=== PATIENT | female | born 1960 | race Caucasian/White ===

== ENCOUNTER 2023-08-16 08:11 | Outpatient (OUT) | payer BC, SELFPAY ==
[2023-08-16 09:41] LABS: Anion Gap 13.7; BUN Creatinine Ratio 29.9; Calcium 8.7 mg/dL (8.5-10.1); Chloride 105 mmol/L (98-107); Estimated GFR (African America >60 (>=60); Estimated GFR (Non-African Ame >60 (>=60); Glucose 124 mg/dL (74-106); Potassium 3.7 mmol/L (3.5-5.1); Sodium 143 mmol/L (136-145)
== END 2023-08-16 08:12 | disposition home or self-care (01) ==
LOC: LAB 08:18
PROVIDERS: PCP Nurse Practitioner; Visit Provider Personal Emergency Response Attendant
DX: Z01.818 Encounter for other preprocedural examination (principal)
CPT/HCPCS: 36415; 80048

== ENCOUNTER 2023-11-29 12:10 | Outpatient (OUT) | payer BC, SELFPAY ==
--- OUTSIDE RECORDS SUMMARY | 2023-11-29 12:28 | XMS_ITS | CCD ---
Author Name Unknown Address [facility] [address] [place] [address] Organization [facility] Care Team Providers Care Digital Account Executive Name Role Phone SACHIN DICKSON Primary Care Physician [phone] DR RAHEEL RAMOS Admitting Unavailable CED, DR PICKERING Attending Unavailable DICKSON ., DR SACHIN Schulz Primary Care Unavailable DR RAHEEL RAMOS Consulting Unavailable DICKSON ., DR SACHIN Schulz Admitting Unavailable DICKSON ., DR SACHIN Schulz Attending Unavailable DICKSON ., DR SACHIN cShulz Primary Care Unavailable KIKI GARCIA Admitting Unavailable KIKI GARCIA Attending Unavailable DICKSON ., DR SACHIN Schulz Primary Care Unavailable Ammy Farnsworth Consulting Unavailable KIKI GARCIA Consulting Unavailable CAROL ., SHAWNA Brown Admitting Unavailable CAROL ., SHAWNA Brown Attending Unavailable DICKSON ., DR SACHIN Schulz Primary Care Unavailable CAROL ., SHAWNA Brown Consulting Unavailable ESTRELLA FRASER Consulting Unavailable DICKSON ., DR SACHIN Schulz Admitting Unavailable DICKSON ., DR SACHIN Schulz Attending Unavailable DICKSON ., DR SACHIN Schulz Primary Care Unavailable DICKSON ., DR SACHIN Schulz Consulting Unavailable SACHIN DICKSON Primary Care Physician [phone] MD Sachin Dickson Primary Care Provider AMADOU Apodaca Attending Provider [phone] Elena Apodaca Attending Unavailable Elena Apodaca Admnarciso Unavailable Sachin Dickson Primary Care Unavailable Shawna Nelson Primary Care Physician [phone] Sachin Dickson MD Primary Care Provider [phone] KIKI GARCIA Attending Unavailable Omari VELASQUEZ Attending Unavailable KIKI GARCIA Attending Unavailable Omari VELASQUEZ Attending Unavailable Omari VELASQUEZ Referring Unavailable VELASQUEZ, Omari R Attending Unavailable Omari VELASQUEZ Admitting Unavailable Carol, 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 Shawna L Attending Unavailable Carol, 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 Shawna L Admitting Unavailable Carol, 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 Shawna L Attending Unavailable Carol, 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 Shawna L Attending Unavailable Carol, 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 Shawna L Attending Unavailable VELASQUEZOmari Attending Unavailable KELBLEY, PHYLLIS Attending Unavailable APODACA, ELENA J Referring Unavailable VILLASENOR, YOLY Manzano Attending Unavailable APODACA, ELENA J Referring Unavailable KELBLEY, PHYLLIS Attending Unavailable APODACA, ELENA J Referring Unavailable KELBLEY, PHYLLIS Attending Unavailable APODACA, ELENA J Referring Unavailable KELBLEY, PHYLLIS Attending Unavailable APODACA, ELENA J Referring Unavailable KELBLEY, PHYLLIS Attending Unavailable APODACA, ELENA J Referring Unavailable APODACA, ELENA J Attending Unavailable KELBLEY, PHYLLIS Attending Unavailable APODACA, ELENA J Referring Unavailable SEANCOLTEN Attending Unavailable APODACA, ELENA J Referring Unavailable KELBLEY, PHYLLIS Attending Unavailable APODACA, ELENA J Referring Unavailable APODACA, ELENA J Attending Unavailable JEREMIAH HAUSER Attending Unavailable APODACA, ELENA J Referring Unavailable APODACA, ELENA J Attending Unavailable VILLASENOR, YOLY J Attending Unavailable APODACA, ELENA J Referring Unavailable KELBLEY, PHYLLIS Attending Unavailable APODACA, ELENA J Referring Unavailable KELBLEY, PHYLLIS Attending Unavailable APODACA, ELENA J Referring Unavailable KELBLEY, PHYLLIS Attending Unavailable APODACA, ELENA J Referring Unavailable BRWEI HERNANDEZ Attending Unavailable APODACA, ELENA J Referring Unavailable KELBLEY, PHYLLIS Attending Unavailable APODACA, ELENA J Referring Unavailable APODACA, ELENA J Attending Unavailable KELBLEY, PHYLLIS Attending Unavailable APODACA, ELENA J Referring Unavailable KELBLEY, PHYLLIS Attending Unavailable APODACA, ELENA J Referring Unavailable KELBLEY, PHYLLIS Attending Unavailable APODACA, ELENA J Referring Unavailable Allergies Allergy Classification Reported Allergen(s) Allergy Type Date of Onset Reaction(s) Facility (14 sources) Morphine; Translations: [morphine] Drug Allergy 2 Seizure (finding), Other [facility] (2 sources) Meperidine Drug Allergy 5 [facility] Repository (2 sources) Meperidine; Translations: [meperidine] Drug Allergy 9 Seizure [facility] (10 sources) nickel; Translations: [nickel] Drug Allergy 0 Other [facility] (1 source) Promethazine; Translations: [promethazine] Drug Allergy [facility] Repository (1 source) Meperidine HCl-Promethazin e HCl; Translations: [Meperidine HCl-Promethazin e HCl] Propensity to adverse reactions (disorder) [facility] Repository Medications Current Medications Medication Drug Class(es) Dates Sig (Normalized) Sig (Original) 0.25 MG, 0.5 MG Dose 3 ML semaglutide 0.68 MG/ML Pen Injector [Ozempic] (4 sources) Start: 07-18-2023 Ozempic 2 mg/3 mL (0.25 mg or 0.5 mg dose) subcutaneous solution 0.25 mg, SubCutaneous, qWeek, # 3 mL, Refills(s) 3, Pharmacy: [facility]/pharmacy #[id number], 162, cm, 07/03/23 15:46:00 EDT, Height/Length Dosing, 100, kg, 07/03/23 15:46:00 EDT, Weight Dosing Start Date: 07/18/23 Status: Ordered Start: 02-27-2023 Ozempic 2 mg/3 mL (0.25 mg or 0.5 mg dose) subcutaneous solution 0.25 mg, SubCutaneous, qWeek, # 1 EA, Refills(s) 3, Pharmacy: [facility]/pharmacy #[id number], 162, cm, 12/20/22 9:07:00 EDT, Height/Length Dosing, 99.8, kg, 12/20/22 9:35:00 EDT, Weight Dosing Start Date: 02/27/23 Status: Ordered acetaminophen 500 mg oral tablet (1 source) Start: 10-04-2019 take 500 mg by mouth every six hours Acetaminophen Active 500 MG PO Q6H 0 October 04, 2019 1:00am acetaminophen 325 mg / oxyCODONE hydrochloride 5 mg oral tablet (1 source) Opioid Agonist Start: 10-04-2019 take 1 tablet by mouth every four to six hours as needed for pain Oxycodone-Acetamino phen (Percocet) 5-325 mg tablet Active 0 .ROUTE .COMPLEX 30 7 October 04, 2019 1 or 2 p.o. every 4-6 hours as needed pain aspirin 325 mg delayed release oral tablet (1 source) Platelet Aggregation Inhibitor, Nonsteroidal Anti-inflammatory Drug Start: 10-04-2019 take 325 mg by mouth once daily Aspirin Active 325 MG PO Daily 0 October 04, 2019 1:00am celecoxib 200 mg oral capsule (15 sources) Nonsteroidal Anti-inflammatory Drug Start: 09-15-2019 take 1 capsule by mouth twice daily as needed for pain celecoxib 200 mg Cap See Instructions, TAKE ONE BY MOUTH TWICE A DAY NEEDED FOR PAIN, # 60 cap(s), Refills(s) 11, Pharmacy: [id number], 162, cm, 08/20/23 8:36:00 EST, Height/Length Dosing, 99.2, kg, 08/20/23 8:36:00 EST, Weight Dosing Start Date: 08/20/23 Status: Ordered celecoxib (CeleB MONIE) 200 MG capsule every 12 (twelve) hours. 0 Active cephalexin 500 mg oral capsule (2 sources) Cephalosporin Antibacterial Start: 03-12-2023 take 1 capsule by mouth twice daily Keflex 500 mg Cap 500 mg = 1 cap(s), Oral, BID, Start the day prior to procedure, # 14 cap(s), Refills(s) 0, Pharmacy: [facility]/pharmacy #[id number], 162, cm, 12/20/22 9:07:00 EDT, Height/Length Dosing, 99.8, kg, 12/20/22 9:35:00 EDT, Weight Dosing Start Date: 03/12/23 Status: Ordered glipiZIDE 10 mg oral tablet (13 sources) Sulfonylurea Start: 10-09-2022 take 1 tablet by mouth twice daily glipiZIDE 10 mg Tab 10 mg = 1 tab(s), Oral, BID, # 90 tab(s), Refills(s) 1, Pharmacy: [facility]/pharmacy #[id number], 162, cm, 08/20/23 8:36:00 EST, Height/Length Dosing, 99.2, kg, 08/20/23 8:36:00 EST, Weight Dosing Start Date: 10/10/23 Status: Ordered hydroCHLOROthiazide 12.5 mg oral capsule (15 sources) Thiazide Diuretic Start: 07-03-2023 take 1 capsule by mouth once daily hydrochlorothiazide 12.5 mg Cap 12.5 mg = 1 cap(s), Oral, Daily, # 90 cap(s), Refills(s) 3, Pharmacy: [facility]/pharmacy #[id number], 162, cm, 07/03/23 15:46:00 EDT, Height/Length Dosing, 100, kg, 07/03/23 15:46:00 EDT, Weight Dosing Start Date: 07/03/23 Status: Ordered Start: 01-12-2023 take 1 capsule by mo uth once daily hydrochlorothiazide 12.5 mg Cap 12.5 mg = 1 cap(s), Oral, Daily, # 90 cap(s), Refills(s) 3, Pharmacy: [facility]/pharmacy #[id number], 162, cm, 12/20/22 9:07:00 EDT, Height/Length Dosing, 99.8, kg, 12/20/22 9:35:00 EDT, Weight Dosing Start Date: 01/12/23 Status: Ordered Start: 11-02-2021 End: 10-28-2022 take 1 capsule by mouth once daily hydrochlorothiazide 12.5 mg Cap 12.5 mg = 1 cap(s), Oral, Daily, X 90 day(s), # 90 cap(s), Refills(s) 3, [id number], cm, 10/04/21 8:11:00 EST, Height/Length Dosing, 100.9, kg, 08/01/21 15:33:00 EDT, Weight Dosing Start Date: 11/02/21 Stop Date: 10/28/22 Status: Ordered Start: 09-15-2019 take 12.5 mg by mout h once daily Hydrochlorothiazide Active 12.5 MG PO Daily 0 October 04, 2019 1:00am hydroCHLOROthiazide 12.5 mg / lisinopril 20 mg oral tablet (1 source) Thiazide Diuretic, Angiotensin Converting Enzyme Inhibitor Start: 09-15-2019 take 1 tablet by mouth once daily Lisinopril-Hydrochlorothiazide Active 1 TAB PO Daily September 15, 2019 1:00am lisinopril 20 mg oral tablet (12 sources) Angiotensin Converting Enzyme Inhibitor Start: 08-17-2020 take 1 tablet by mouth once daily lisinopril 20 mg Tab 20 mg = 1 tab(s), Oral, Daily, # 90 tab(s), Refills(s) 3, Pharmacy: [facility]/pharmacy #[id number], 162, cm, 12/20/22 9:07:00 EDT, Height/Length Dosing, 99.8, kg, 12/20/22 9:35:00 EDT, Weight Dosing Start Date: 01/23/23 Status: Ordered losartan potassium 25 mg oral tablet (1 source) Angiotensin 2 Receptor Pablo Start: 10-17-2023 take 1 tablet by mouth once daily losartan 25 mg Tab 25 mg = 1 tab(s), Oral, Daily, # 30 tab(s), Refills(s) 2, Pharmacy: [facility]/pharmacy #[id number], 162, cm, 10/17/23 10:57:00 EST, Height/Length Dosing, 99.8, kg, 10/17/23 10:57:00 EST, Weight Dosing Start Date: 10/17/23 Status: Ordered metFORMIN hydrochloride 500 mg oral tablet (13 sources) Biguanide Start: 10-09-2022 take 1 tablet by mouth twice daily metformin 500 mg Tab 500 mg = 1 tab(s), Oral, BID, # 180 tab(s), Refills(s) 3, Pharmacy: [facility]/pharmacy #[id number], 162, cm, 12/20/22 9:07:00 EDT, Height/Length Dosing, 99.8, kg, 12/20/22 9:35:00 EDT, Weight Dosing Start Date: 01/12/23 Status: Ordered methylPREDNISolone (8 sources) Corticosteroid Start: 10-12-2023 methylPREDNISolone (Medrol Dospak) 4 MG tablets Indications: S/P arthroscopy of left shoulder Follow schedule on package instructions 21 tablet 0 10/12/2023 Active metoprolol tartrate 25 mg oral tablet (14 sources) beta-Adrenergic Pablo Start: 07-11-2022 take 1 tablet by mouth every eight hours metoprolol tartrate (Lopressor) 25 MG tablet Take 25 mg by mouth every 8 (eight) hours. 0 07/11/2022 Active Start: 10-09-2019 take 1 mg by mouth once daily metoprolol 25 mg ER Tab mg tab(s), Oral, Daily, Refills(s) 0 Start Date: 10/09/19 Status: Ordered Start: 09-15-2019 take 25 mg by mouth twice luz y Metoprolol Tartrate Active 25 MG PO Twice daily September 15, 2019 1:00am omeprazole 40 mg delayed release oral capsule (12 sources) Proton Pump Inhibitor Start: 02-27-2023 End: 02-22-2024 omeprazole (PriLOSEC) [address] capsule Take 40 mg by mouth. 0 02/27/2023 02/22/2024 Active 0.25 mg, 0.5 mg dose 1.5 ml semaglutide 1.34 mg/ml pen injector (9 sources) Start: 11-27-2022 inject 0.25 mg by subcutaneous injection every week Ozempic, 0.25 or 0.5 MG/DOSE, 2 MG/1.5ML solution pen-injector INJECT 0.25MG SUBCUTANEOUSLY ONCE A WEEK 0 11/27/2022 Active Start: 10-09-2022 Ozempic 2 mg/1 .5 mL (0.25 mg or 0.5 mg dose) subcutaneous solution Refill(s) 0 Start Date: 10/09/22 Status: Ordered solifenacin succinate 10 mg oral tablet (14 sources) Cholinergic Muscarinic Antagonist Start: 09-02-2022 take 1 tablet by mouth once daily Vesicare 10 mg Tab 10 mg = 1 tab(s), Oral, Daily, # 90 tab(s), Refills(s) 3, Pharmacy: [facility]/pharmacy #[id number], 162, cm, 08/20/23 8:36:00 EST, Height/Length Dosing, 99.2, kg, 08/20/23 8:36:00 EST, Weight Dosing Start Date: 08/29/23 Status: Ordered 24 hr tolterodine tartrate 4 mg extended release oral capsule (1 source) Cholinergic Muscarinic Antagonist Start: 09-15-2019 take 1 capsule by mouth once daily Tolterodine (Detrol La) 4 mg Capsule,Extended Release 24hr Active 8 MG PO Daily September 15, 2019 1:00am Problems Problem Classification Problem Date Documented Date Episodic/Chronic Calculus of urinary tract (20 sources) History of calculus of kidney; Translations: [Personal history of urinary calculi] Onset: 09-18-2022 Episodic Diabetes mellitus with complications (4 sources) Type 2 diabetes mellitus with unspecified complications; Translations: [TYPE 2 DM W/UNS COMPLICATIONS] Onset: 06-09-2022 Chronic Diabetes mellitus without complication (2 sources) Type 2 diabetes mellitus without complications; Translations: [Type 2 diabetes mellitus] Onset: 09-19-2022 10-17-2023 Chronic Diabetes mellitus without complication (5 sources) Glycosuria 08-01-2021 Episodic Essential hypertension (6 sources) Hypertensive disorder; Translations: [Benign hypertension] 10-09-2019 Chronic Genitourinary symptoms and ill-defined conditions (17 sources) Urge incontinence; Translations: [Female stress incontinence] Onset: 10-09-2022 Chronic Genitourinary symptoms and ill-defined conditions (20 sources) Nocturia; Translations: [Nocturia] Onset: 10-09-2022 Episodic Osteoarthritis (6 sources) Arthritis; Translations: [Osteoarthritis of knee] 10-09-2019 Chronic Other connective tissue disease (1 source) History of total knee arthroplasty; Translations: [Presence of unspecified artificial knee joint] 10-04-2019 Chronic Other injuries and conditions due to external causes (4 sources) Unspecified injury of left shoulder and upper arm, initial encounter; Translations: [UNS INJ LT SHOULDER UP ARM INITIAL] Onset: 12-21-2022 Episodic Other lower respiratory disease (2 sources) Cough 08-20-2023 Episodic Other non-traumatic joint disorders (12 sources) Pain in left shoulder; Translations: [Pain in joint, shoulder region] Onset: 09-25-2023 09-25-2023 Episodic Other nutritional; endocrine; and metabolic disorders (4 sources) Body mass index 30+ - obesity 12-20-2022 Chronic Other nutritional; endocrine; and metabolic disorders (5 sources) Obesity; Translations: [Obesity, unspecified] 12-20-2022 Chronic Residual codes; unclassified (12 sources) History of arthroscopic procedure on shoulder; Translations: [Other specified postprocedural states] Onset: 09-25-2023 09-25-2023 Episodic Unclassified (1 source) Other specific joint derangements of left shoulder, not elsewhere classified; Translations: [Other specific joint derangements of left shoulder, not elsewhere classified] Onset: 04-26-2023 Unclassified (3 sources) Patient encounter status 10-17-2023 Results Test Name Value Interpretation Reference Range Facility Consultation Noteon 11-16-19 Consultation Note [id number] 0TIFF [facility] Consultation Noteon 10-26-19 Consultation Note [id number] TIFF Normal [facility] Reminderson 10-25-2023 Reminders - From: Shawna Roberts To: [facility] - Clinical; Sent: 10/18/2023 09:08:13 EST Show up: 10/18/2023 09:08:00 EST Subject: Ambulatory Reminder Due Date/Time: 10/19/2023 09:07:00 EST labs normal Results: Date Result Name Ind Value Ref Range 10/17/2023 11:29 WBC 10.3 E9/L (4.0 - 11.0) 10/17/2023 11:29 RBC 4.6 E12/L (4.3 - 5.9) 10/17/2023 11:29 HGB 14.2 gm/dL (12.0 - 16.0) 10/17/2023 11:29 Hct 44.0 % (34.0 - 46.0) 10/17/2023 11:29 MCV 93.8 fL (80.0 - 100.0) 10/17/2023 11:29 MCH 30.5 pg (27.0 - 34.0) 10/17/2023 11:29 MCHC 32.6 gm/dL (31.4 - 36.0) 10/17/2023 11:29 RDW ((H)) 14.7 % (10.9 - 14.2) 10/17/2023 11:29 Platelet 326.0 E9/L (150.0 - 500.0) 10/17/2023 11:29 MPV 7.9 fL (6.4 - 10.8) 10/17/2023 11:29 Neutro Auto 58.1 % (36.0 - 75.0) 10/17/2023 11:29 Lymph Auto 33.9 % (14.0 - 50.0) 10/17/2023 11:29 [place]in Auto 6.8 % (4.0 - 14.0) 10/17/2023 11:29 Eos Auto 0.8 % (0.0 - 8.0) 10/17/2023 11:29 Basophil Auto 0.4 % (0.0 - 2.0) 10/17/2023 11:29 Neutro Absolute 6.0 E9/L (2.0 - 7.5) 10/17/2023 11:29 Lymph Absolute 3.5 E9/L (1.0 - 4.0) 10/17/2023 11:29 [place] Absolute 0.7 E9/L (0.2 - 1.0) 10/17/2023 11:29 Eos Absolute 0.1 E9/L (0.0 - 0.5) 10/17/2023 11:29 Basophil Absolute 0.0 E9/L (0.0 - 0.2) 10/17/2023 11:29 Glucose Lvl 124 mg/dL (55 - 199) 10/17/2023 11:29 BUN 19 mg/dL (5 - 21) 10/17/2023 11:29 Creatinine 0.8 mg/dL (0.5 - 1.3) 10/17/2023 11:29 eGFR 83 mL/min/1.73 m2 (>=59 - ) 10/17/2023 11:29 BUN/Creat Ratio ((H)) 24 (10 - 20) 10/17/2023 11:29 Sodium Lvl 139 mmol/L (135 - 145) 10/17/2023 11:29 Potassium Lvl 3.8 mmol/L (3.5 - 5.3) 10/17/2023 11:29 Chloride 104 mmol/L (101 - 111) 10/17/2023 11:29 CO2 27 mmol/L (21 - 31) 10/17/2023 11:29 AGAP 12 mEq/L (6 - 16) 10/17/2023 11:29 Calcium Lvl 9.4 mg/dL (8.9 - 11.1) 10/17/2023 11:29 Alk Phos 96 Int._Unit/L (21 - 98) 10/17/2023 11:29 ALT 24 Int._Unit/L (6 - 46) 10/17/2023 11:29 AST 15 Int._Unit/L (5 - 43) 10/17/2023 11:29 Total Protein 6.9 gm/dL (6.0 - 7.8) 10/17/2023 11:29 Albumin Lvl 4.1 gm/dL (3.3 - 5.0) 10/17/2023 11:29 Globulin 2.8 gm/dL (1.4 - 4.0) 10/17/2023 11:29 A/G Ratio 1.5 (1.1 - 2.2) 10/17/2023 11:29 Bili Total 0.5 mg/dL (0.0 - 1.1) 10/17/2023 11:29 Chol 170 mg/dL (120 - 200) 10/17/2023 11:29 Trig 97 mg/dL ( - <=149) 10/17/2023 11:29 HDL 56 mg/dL 10/17/2023 11:29 LDL Direct 105 mg/dL ( - <=129) 10/17/2023 11:29 VLDL 19 mg/dL (7 - 40) 10/17/2023 11:29 TSH 1.84 mcIU/mL (0.34 - 5.60) From: Moni Suresh ([facility] - Clinical) To: Shawna Roberts; Sent: 10/18/2023 10:08:24 EST Show up: 10/18/2023 10:08:00 EST Subject: RE: Ambulatory Reminder pt notified, she stated she now has a yeast infection for the Antibiotic and would like to know if you could sent her something in. Pt Called to check on this , she is asking for a call back. Could we have Jessi take a look at this. Im thinking since it is under reminders she may not have seen the message. From: Bridgette Plummer LPN To: [facility] - Clinical; Sent: 10/19/2023 12:04:09 EST Show up: 10/19/2023 12:03:00 EST Subject: lab results- yeast infection From: Jossie Yoo ([facility] - Clinical) To: Shawna Roberts; Sent: 10/22/2023 11:26:57 EST Show up: 10/22/2023 11:26:00 EST Subject: RE: lab results- yeast infection From: Shawna Roberts To: [facility] - Clinical; Sent: 10/25/2023 12:40:20 EST Show up: 10/25/2023 12:40:00 EST Subject: RE: lab results- yeast infection diflucan sent to pharmacy noted Normal [facility] Ambulatory Visit Summaryon 0 10-17-2023 Ambulatory Visit Summary DEBI LIMA :1960 Visit Date:10/17/2023 Ambulatory Visit Instructions Your Diagnosis Wellness examination Type 2 diabetes mellitus Hypertension BMI 38.0-38.9,adult Non-smoker Screening for hyperlipidemia Screening for thyroid disorder Your Care Team Attending Physician - Shawna Roberts Primary Care Physician - Shawna Roberts This Is Your Medications List Misc Prescription (lancets) Misc Prescription (test strips) celecoxib (celecoxib 200 mg Cap) glipiZIDE (glipiZIDE 10 mg Tab) hydrochlorothiazide (hydrochlorothiazide 12.5 mg Cap) lisinopril (lisinopril 20 mg Tab) metformin (metformin 500 mg Tab) metoprolol (metoprolol 25 mg ER Tab) omeprazole (omeprazole 40 mg Cap-DR) semaglutide (Ozempic 2 mg/3 mL (0.25 mg or 0.5 mg dose) subcutaneous solution) solifenacin (Vesicare 10 mg Tab) Procedures Performed 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 Discharge Vitals Heart Rate (Peripheral) 76 Respiratory Rate 18 Blood Pressure 124/88 Height 162.0 cm Height 64 in Weight 99.8 kg Weight 219.56 lb BMI 38.03 Medications What How Much When Instructions Unchanged celecoxib (celecoxib 200 mg Cap) See instructions TAKE ONE BY MOUTH TWICE A DAY NEEDED FOR PAIN Unchanged glipiZIDE (glipiZIDE 10 mg Tab) 1 Tablets By Mouth 2 times a day Unchanged hydrochlorothiazide (hydrochlorothiazide 12.5 mg Cap) 1 Capsules By Mouth Every day Unchanged lisinopril (lisinopril 20 mg Tab) 1 Tablets By Mouth Every day Unchanged metformin (metformin 500 mg Tab) 1 Tablets By Mouth 2 times a day Unchanged metoprolol (metoprolol 25 mg ER Tab) By Mouth Every day Unchanged Misc Prescription (lancets) See instructions test glucose daily dx E11.9 Unchanged Misc Prescription (test strips) See instructions glucometer test strips to check blood sugars daily dx: glucosuria Unchanged omeprazole (omeprazole 40 mg Cap-DR) 1 Capsules By Mouth 2 times a day Duration: 90 Days Unchanged semaglutide (Ozempic 2 mg/ 3 mL (0.25 mg or 0.5 mg dose) subcutaneous solution) 0.25 Milligram Subcutaneous Every week Unchanged solifenacin (Vesicare 10 mg Tab) 1 Tablets By Mouth Every day Allergies morphine (Seizure) Problems Ongoing - Any problem that you are currently receiving treatment for. Arthritis BMI 38.0-38.9,adult Cough Glucosuria Hematuria History of kidney stones Hypertension Incomplete bladder emptying Kidney stone Mixed incontinence Nephrolithiasis Nocturia Obesity due to excess calories Screening for hyperlipidemia Screening for thyroid disorder Stress incontinence, female Type 2 diabetes mellitus Urge incontinence Urgency of urination Urinary frequency Wellness examination Patient Survey You may receive a survey via text or e-mail asking about your office visit. Please share your experience with us by completing your survey. We appreciate your feedback and thank you for choosing us for your care. Normal [facility] CBC w/ Auto Diffon 4 Basophil Absolute 0.0 E9/L Normal 0.0-0.2 [facility] Comment on above: Performed By: #### 2 [id number], [id number] #### [facility] [address] [place] [address] Basophils/100 WBC (Bld) 0.4 % Normal 0.0-2.0 [facility] Comment on above: Performed By: #### 2 [id number], [id number], [id number], [id number], [id number] #### [facility] [address] [place] [address] Eos Absolute 0.1 E9/L Normal 0.0-0.5 [facility] Comment on above: Performed By: #### 2 [id number], [id number], [id number], [id number] #### [facility] [address] [place] [address] Eosinophils/100 WBC (Bld) 0.8 % Normal 0.0-8.0 [facility] Comment on above: Performed By: #### 2 [id number], [id number], [id number] #### [facility] [address] [place] [id number] Erythrocyte distribution width (RBC) [Ratio] 14.7 % High 10.9-14.2 [facility] Comment on above: Performed By: #### 2 [id number], [id number], [id number] #### [facility] [address] [place] [id number] Hematocrit (Bld) [Volume fraction] 44.0 % Normal 34.0-46.0 [facility] Comment on above: Performed By: #### 2 [id number], [id number], [id number], [id number] #### [facility] [address] [place] [id number] Hemoglobin (Bld) [Mass/Vol] 14.2 g/dL Normal 12.0-16.0 [facility] Comment on above: Performed By: #### 2 [id number], [id number], [id number], [id number] #### [facility] [address] [place] [address] Lymph Absolute 3.5 E9/L Normal 1.0-4.0 [facility] Comment on above: Performed By: #### 2 [id number], [id number], [id number], [id number], [id number] #### [facility] [address] [place] [address] Lymphocytes/100 WBC (Bld) 33.9 % Normal 14.0-50.0 [facility] Comment on above: Performed By: #### 2 [id number], [id number], [id number], [id number], [id number] #### [facility] Laboratory [address] [place] [address] 76040 MCH (RBC) [Entitic mass] 30.5 pg Normal 27.0-34.0 [facility] Comment on above: Performed By: #### 2 774600, 0008088, 7263030, 82992866, 9010868 #### [facility] Laboratory [address] [place] [address] 75943 MCHC (RBC) [Mass/Vol] 32.6 g/dL Normal 31.4-36.0 [facility] Comment on above: Performed By: #### 2 048720, 6150926, 1027777, 35629679, 9105152 #### [facility] [address] [place] [address] 76085 MCV (RBC) [Entitic vol] 93.8 fL Normal 80.0-100.0 [facility] Comment on above: Performed By: #### 2 712164, 2130640, 0536784, 88120345, 8065409 #### [facility] Laboratory [address] [place] [address] 92928 [place] Absolute 0.7 E9/L Normal 0.2-1.0 [facility] Comment on above: Performed By: #### 2 223187, 2384758, 9690287, 45971073, 2634084 #### [facility] [address] [place] [address] 65686 Monocytes/100 WBC (Bld) 6.8 % Normal 4.0-14.0 [facility] Comment on above: Performed By: #### 2 234465, 3986925, 8421566, 32861880, 0607725 #### [facility] [address] [place] [address] 53701 Neutro Absolute 6.0 E9/L Normal 2.0-7.5 [facility] Comment on above: Performed By: #### 2 479921, 4911971, 1245124, 85779829, 7429934 #### [facility] [address] [place] [address] Neutro Auto 58.1 % Normal 36.0-75.0 [facility] Comment on above: Performed By: #### 2 697012, 0775786, 3328188, 65344440, 6968176 #### [facility] [address] [place] [address] Platelet 326.0 E9/L Normal 150.0-500.0 [facility] Comment on above: Performed By: #### 2 508289, 8846368, 1399733, 39879117, 9649711 #### [facility] [address] [place] [address] Platelet mean volume (Bld) [Entitic vol] 7.9 fL Normal 6.4-10.8 [facility] Comment on above: Performed By: #### 2 215390, 5731412, 1262630, 64997622, 9422249 #### [facility] [address] [place] [address] RBC 4.6 E12/L Normal 4.3-5.9 [facility] Comment on above: Performed By: #### 2 951275, 8685260, 9772292, 41379581, 8561273 #### [facility] [address] [place] [address] WBC 10.3 E9/L Normal 4.0-11.0 [facility] Comment on above: Performed By: #### 2 358064, 0181230, 5766007, 55467153, 6792971 #### [facility] [address] [place] [address] CHEMISTRYOrdered By: SYSTEM SYSTEM on 10-17-2023 Albumin [Mass/Vol] 4.1 g/dL Normal 3.3 - 5.0 gm/dL [facility] Albumin/Globulin [Mass ratio] 1.5 {ratio} Normal 1.1 - 2.2 [facility] Alk Phos 96 [iU]/d Normal 21 - 98 Int._Unit/L [facility] ALT 24 [iU]/d Normal 6 - 46 Int._Unit/L [facility] Anion gap [Moles/Vol] 12 mmol/L Normal 6 - 16 mEq/L R emisol Chem AST 15 [iU]/d Normal 5 - 43 Int._Unit/L [facility] Bili Total 0.5 mg/dL Normal 0.0 - 1.1 mg/dL [facility] Calcium [Mass/Vol] 9.4 mg/dL Normal 8.9 - 11. 1 mg/dL [facility] Chloride [Moles/Vol] 104 mmol/L Normal 101 - 1 11 mmol/L [facility] Cholesterol [Mass/Vol] 170 mg/dL Normal 120 - 200 mg/dL [facility] Cholesterol in HDL [Mass/Vol] 56 mg/dL Invalid Interpretation Code [facility] Comment on above: Result Comment: '>= 60 LOW RISK' '<= 40 HIGH RISK' Cholesterol in LDL [Mass/Vol] 105 mg/dL Normal <=129mg/dL [facility] Cholesterol in VLDL [Mass/Vol] 19 mg/dL Normal 7 - 40 mg/dL [facility] CO2 [Moles/Vol] 27 mmol/L Normal 21 - 31 mmol/L [facility] Creatinine [Mass/Vol] 0.8 mg/dL Normal 0.5 - 1.3 mg/dL [facility] eGFR 83 mL/min/1.73 m2 Normal >=59mL/min /1 .73 m2 [facility] Globulin (S) [Mass/Vol] 2.8 g/dL Normal 1.4 - 4.0 gm/dL [facility] Glucose [Mass/Vol] 124 mg/dL Normal 55 - 199 mg/dL [facility] Potassium [Moles/Vol] 3.8 mmol/L Normal 3.5 - 5.3 mmol/L [facility] Protein [Mass/Vol] 6.9 g/dL Normal 6.0 - 7.8 gm/dL [facility] Sodium [Moles/Vol] 139 mmol/L Normal 135 - 145 mmol/L [facility] Triglyceride [Mass/Vol] 97 mg/dL Normal <=149mg/dL [facility] TSH Qn 1.84 m[IU]/L Normal 0.34 - 5.60 mcIU/mL [facility] Urea nitrogen [Mass/Vol] 19 mg/dL Normal 5 - 21 mg/dL [facility] Urea nitrogen/Creatinine [Mass ratio] 24 mg/mg High 10 - 20 [facility] CMPon 10-17-2023 Albumin [Mass/Vol] 4.1 g/dL Normal 3.3-5.0 [facility] Comment on above: Performed By: #### 2 261220, 0702873, 9776451, 16876636, 7252400 #### [facility] [address] [place] [address] Albumin/Globulin [Mass ratio] 1.5 {ratio} Normal 1.1-2.2 [facility] Comment on above: Performed By: #### 2 236538, 2421687, 8108071, 99401647, 5974565 #### [facility] [address] [place] [address] Alk Phos 96 Int._Unit/L Normal 21-98 [facility] Comment on above: Performed By: #### 2 085482, 8083014, 9646366, 39357649, 5332026 #### [facility] [address] [place] [address] ALT 24 Int._Unit/L Normal 6-46 [facility] Comment on above: Performed By: #### 2 747184, 5072327, 6508229, 05483870, 0531481 #### [facility] [address] [place] [address] Anion gap [Moles/Vol] 12 mmol/L Normal 6-16 [facility] Comment on above: Performed By: #### 2 782065, 3604203, 2874912, 50832947, 7126284 #### [facility] [address] [place] [address] AST 15 Int._Unit/L Normal 5-43 [facility] Comment on above: Performed By: #### 2 279903, 7870545, 6733208, 33363961, 2907528 #### [facility] [address] [place] [address] Bili Total 0.5 mg/dL Normal 0.0-1.1 [facility] Comment on above: Performed By: #### 2 485955, 0274374, 7846376, 97251615, 4742645 #### [facility] [address] [place] [address] BUN/Creat Ratio 24 No Units High 10-20 [facility] Comment on above: Performed By: #### 2 901900, 4560261, 4776245, 76436704, 3973393 #### [facility] [address] [place] [address] Calcium [Mass/Vol] 9.4 mg/dL Normal 8.9-11.1 [facility] Comment on above: Performed By: #### 2 606146, 9454045, 1572212, 65307881, 2675042 #### [facility] [address] [place] [address] Chloride [Moles/Vol] 104 mmol/L Normal 101-111 [facility] Comment on above: Performed By: #### 2 511046, 6021123, 1047363, 36520062, 0268295 #### [facility] [address] [place] [address] CO2 [Moles/Vol] 27 mmol/L Normal 21-31 [facility] Comment on above: Performed By: #### 2 717394, 5083949, 0383903, 67587475, 3858179 #### [facility] [address] [place] [address] Creatinine [Mass/Vol] 0.8 mg/dL Normal 0.5-1.3 [facility] Comment on above: Performed By: #### 2 032905, 6595084, 1416797, 88025092, 9467041 #### [facility] [address] [place] [address] Globulin (S) [Mass/Vol] 2.8 g/dL Normal 1.4-4.0 [facility] Comment on above: Performed By: #### 2 146796, 1366796, 7810985, 07720115, 4802389 #### [facility] [address] [place] [address] Glucose [Mass/Vol] 124 mg/dL Normal 55-199 [facility] Comment on above: Performed By: #### 2 520261, 2065307, 0604230, 72043228, 5216756 #### [facility] [address] [place] [address] Potassium [Moles/Vol] 3.8 mmol/L Normal 3.5-5.3 [facility] Comment on above: Performed By: #### 2 849657, 2181967, 9831090, 80736732, 7441613 #### [facility] [address] [place] [address] Protein [Mass/Vol] 6.9 g/dL Normal 6.0-7.8 [facility] Comment on above: Performed By: #### 2 126310, 8717893, 9005959, 81595070, 7971676 #### [facility] [address] [place] [address] Sodium [Moles/Vol] 139 mmol/L Normal 135-145 [facility] Comment on above: Performed By: #### 2 165525, 4466232, 5787313, 62079331, 3186032 #### [facility] [address] [place] [address] Urea nitrogen [Mass/Vol] 19 mg/dL Normal 5-21 [facility] Comment on above: Performed By: #### 2 672706, 9095433, 9649177, 11830041, 9564210 #### [facility] [address] [place] [address] Family Medicine Office/Clini c Noteon 10-17-2023 Family Medicine Office/Clinic Note HPI Staff Debi is a 63 year old female presenting for HTN check Patient is here for follow up on hypertension. How often are you checking your blood pressure? no What are your average readings? _ pt here today to see about changing the lisinopril to something different Pt would like to discuss about chcf effects of being on metformin 01/2023 A1c 6.5 History of Present Illness pt presents today for wellness visit. due for labs. BP at goal Review of Systems PHQ Score Initial Depression Screen Score: 0 SCORE ROS - Provider Constitutional: no fever, no chills, no sweats, no fatigue Respiratory: no shortness of breath, no cough, no orthopnea, no wheezing. Cardiovascular: no chest pain, no palpitations, no edema. Neurologic: no headache, no dizziness, no numbness, no weakness. Physical Exam Vitals & Measurements HR: 76(Peripheral) RR: 18 BP: 124/88 SpO2: 99% HT: 64 in HT: 162.0 cm WT: 99.8 kg WT: 219.56 lb BMI: 38.03 General: alert, no acute distress ENMT: oral mucosa moist, no pharyngeal erythema or exudate Cardiovascular: regular rate and rhythm, normal peripheral perfusion Respiratory: Lungs CTA, respirations non labored Extremities: no deformity, no trauma Neurological: oriented x 4, LOC appropriate for age, CN II-XII intact, motor strength equal & normal bilaterally, speech normal Assessment/Plan 1. Wellness examination (Z00.00: Encounter for general adult medical examination without abnormal findings) pt presents for annual wellness visit. labs drawn in office today. Ordered: losartan, 25 mg = 1 tab(s), Oral, Daily, # 30 tab(s), Refills(s) 2, Pharmacy: [facility]/pharmacy #[id number], 162, cm, 10/17/23 10:57:00 EST, Height/Length Dosing, 99.8, kg, 10/17/23 10:57:00 EST, Weight Dosing CBC w/ Auto Diff Comprehensive Metabolic Panel Lab Specimen Collect [id number] Lipid Panel Thyroid Stimulating Hormone 2. Type 2 diabetes mellitus (E11.9: Type 2 diabetes mellitus without complications) return for HGBA1C in november or december. she will see knee surgeon next week. he will want updated HGBA1C prior to surgery Ordered: losartan, 25 mg = 1 tab(s), Oral, Daily, # 30 tab(s), Refills(s) 2, Pharmacy: [facility]/pharmacy #[id number], 162, cm, 10/17/23 10:57:00 EST, Height/Length Dosing, 99.8, kg, 10/17/23 10:57:00 EST, Weight Dosing CBC w/ Auto Diff Comprehensive Metabolic Panel Lab Specimen Collect [id number] Lipid Panel Thyroid Stimulating Hormone 3. Hypertension (I10: Essential (primary) hypertension) BP at goal today. pt still c/o cough. will d/c lisniopril and start losartan Ordered: losartan, 25 mg = 1 tab(s), Oral, Daily, # 30 tab(s), Refills(s) 2, Pharmacy: [facility]/pharmacy #[id number], 162, cm, 10/17/23 10:57:00 EST, Height/Length Dosing, 99.8, kg, 10/17/23 10:57:00 EST, Weight Dosing CBC w/ Auto Diff Comprehensive Metabolic Panel Lab Specimen Collect [id number] Lipid Panel Thyroid Stimulating Hormone 4. BMI 38.0-38.9,adult (Z68.38: Body mass index [BMI] 38.0-38.9, adult) BMI eduction complete Ordered: losartan, 25 mg = 1 tab(s), Oral, Daily, # 30 tab(s), Refills(s) 2, Pharmacy: [facility]/pharmacy #[id number], 162, cm, 10/17/23 10:57:00 EST, Height/Length Dosing, 99.8, kg, 10/17/23 10:57:00 EST, Weight Dosing CBC w/ Auto Diff Comprehensive Metabolic Panel Lipid Panel Thyroid Stimulating Hormone 5. Non-smoker (Z78.9: Other specified health status) continue not smoking Ordered: losartan, 25 mg = 1 tab(s), Oral, Daily, # 30 tab(s), Refills(s) 2, Pharmacy: [facility]/pharmacy #[id number], 162, cm, 10/17/23 10:57:00 EST, Height/Length Dosing, 99.8, kg, 10/17/23 10:57:00 EST, Weight Dosing CBC w/ Auto Diff Comprehensive Metabolic Panel Lipid Panel Thyroid Stimulating Hormone 6. Screening for hyperlipidemia (Z13.220: Encounter for screening for lipoid disorders) lipid panel drawn today Ordered: losartan, 25 mg = 1 tab(s), Oral, Daily, # 30 tab(s), Refills(s) 2, Pharmacy: [facility]/pharmacy #[id number], 162, cm, 10/17/23 10:57:00 EST, Height/Length Dosing, 99.8, kg, 10/17/23 10:57:00 EST, Weight Dosing CBC w/ Auto Diff Comprehensive Metabolic Panel Lab Specimen Collect [id number] Lipid Panel Thyroid Stimulating Hormone 7. Screening for thyroid disorder (Z13.29: Encounter for screening for other suspected endocrine disorder) TSH drawn today Ordered: losartan, 25 mg = 1 tab(s), Oral, Daily, # 30 tab(s), Refills(s) 2, Pharmacy: [facility]/pharmacy #[id number], 162, cm, 10/17/23 10:57:00 EST, Height/Length Dosing, 99.8, kg, 10/17/23 10:57:00 EST, Weight Dosing CBC w/ Auto Diff Comprehensive Metabolic Panel Lab Specimen Collect [id number] Lipid Panel Thyroid Stimulating Hormone Follow-up No qualifying data available Problem List/Past Medical History Ongoing Arthritis BMI 38.0-38.9,adult Cough Glucosuria Hematuria History of kidney stones Hypertension Incomplete bladder emptying Kidney stone Mixed incontinence Nephrolithiasis Nocturia Obesity due to excess calories Screening for hyperlipidemia Screening f (more content not included)... Normal [facility] Comment on above: Result Comment: Elec tronically Signed By: Shawna Roberts\.br\Date and Time Signed: 10/17/23 12:40 EST HEMATOLOGYOrdered By: SYSTEM SYSTEM on 10-17-2023 Basophil Absolute 0.0 E9/L Normal 0.0 - 0.2 E9/L [facility] Basophils/100 WBC (Bld) 0.4 % Normal 0.0 - 2.0 % [facility] Eos Absolute 0.1 E9/L Normal 0.0 - 0.5 E9/L [facility] Eosinophils/100 WBC (Bld) 0.8 % Normal 0.0 - 8.0 % [facility] Erythrocyte distribution width (RBC) [Ratio] 14.7 % High 10.9 - 14.2 % [facility] Hematocrit (Bld) [Volume fraction] 44.0 % Normal 34.0 - 46.0 % [facility] Hemoglobin (Bld) [Mass/Vol] 14.2 g/dL Normal 12.0 - 16.0 gm/dL [facility] Lymph Absolute 3.5 E9/L Normal 1.0 - 4.0 E9/L [facility] Lymphocytes/100 WBC (Bld) 33.9 % Normal 14.0 - 50.0 % [facility] MCH (RBC) [Entitic mass] 30.5 pg Normal 27.0 - 34.0 pg [facility] MCHC (RBC) [Mass/Vol] 32.6 g/dL Normal 31.4 - 36.0 gm/dL [facility] MCV (RBC) [Entitic vol] 93.8 fL Normal 80.0 - 100.0 fL [facility] [place] Absolute 0.7 E9/L Normal 0.2 - 1.0 E9/L [facility] Monocytes/100 WBC (Bld) 6.8 % Normal 4.0 - 14.0 % [facility] Neutro Absolute 6.0 E9/L Normal 2.0 - 7.5 E9/L [facility] Neutro Auto 58.1 % Normal 36.0 - 75.0 % [facility] Platelet 326.0 E9/L Normal 150.0 - 500.0 E9/L [facility] Platelet mean volume (Bld) [Entitic vol] 7.9 fL Normal 6.4 - 10.8 fL [facility] RBC 4.6 E12/L Normal 4.3 - 5.9 E12/L [facility] WBC 10.3 E9/L Normal 4.0 - 11.0 E9/L [facility] Lipid Panelon 10-17-2023 Cholesterol [Mass/Vol] 170 mg/dL Normal 120-200 [facility] Comment on above: Performed By: #### 2 454241, 2534298, 3750859, 39970713, 5105742 #### [facility] Laboratory [address] [place] [address] Cholesterol in HDL [Mass/Vol] 56 mg/dL Invalid Interpretation Code [facility] Comment on above: Result Comment: '>= 60 LOW RISK' '<= 40 HIGH RISK' Performed By: #### 2 848240, 6326237, 4674187, 39974841, 6753816 #### [facility] [address] [place] [address] Cholesterol in LDL [Mass/Vol] 105 mg/dL Normal <=129 [facility] Comment on above: Performed By: #### 2 691845, 1733767, 5083099, 21940862, 4273568 #### [facility] [address] [place] [address] Cholesterol in VLDL [Mass/Vol] 19 mg/dL Normal 7-40 [facility] Comment on above: Performed By: #### 2 908650, 3190584, 2752964, 75437373, 8747782 #### [facility] [address] [place] [address] Triglyceride [Mass/Vol] 97 mg/dL Normal <=149 [facility] Comment on above: Performed By: #### 2 916412, 2886257, 4640431, 21282904, 4095430 #### [facility] [address] [place] [address] TSHon 10-17-2023 TSH Qn 1.84 m[IU]/L Normal 0.34-5.60 [facility] Comment on above: Performed By: #### 2 020080, 0784004, 1039995, 66016414, 0678652 #### [facility] [address] [place] [address] eGFRon 10-17-2023 eGFR 83 mL/min/1.73 m2 Normal >=59 [facility] Comment on above: Order Comment: Order added by Discern Expert. Performed By: #### 2 834632, 6502723, 7150908, 21857307, 9314320 #### [facility] [address] [place] [address] Consultation Noteon 10-15-19 24 Consultation Note [id number] TIFF Normal [facility] Consultation Noteon 09-14-20 Consultation Note [id number] 0TIFF Normal [facility] Ambulatory Visit Summaryon 1 10-20-2022 Ambulatory Visit Summary DEBI LIMA :1960 Visit Date:08/20/2023 Ambulatory Visit Instructions Your Diagnosis Cough BMI 37.0-37.9, adult Non-smoker Your Care Team Attending Physician - Shawna Roberts Primary Care Physician - Shawna Roberts This Is Your Medications List [facility] Prescription (lancets) [facility] Prescription (test strips) celecoxib (Celebrex) celecoxib (celecoxib 200 mg Cap) glipiZIDE (glipiZIDE 10 mg Tab) hydrochlorothiazide (hydrochlorothiazide 12.5 mg Cap) lisinopril (lisinopril 20 mg Tab) metformin (metformin 500 mg Tab) metoprolol (metoprolol 25 mg ER Tab) omeprazole (omeprazole 40 mg Cap-DR) semaglutide (Ozempic 2 mg/3 mL (0.25 mg or 0.5 mg dose) subcutaneous solution) solifenacin (Vesicare 10 mg Tab) Procedures Performed 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 Discharge Vitals Heart Rate (Peripheral) 78 Respiratory Rate 18 Blood Pressure 132/80 Height 162.0 cm Height 64 in Weight 99.2 kg Weight 218.24 lb BMI 37.8 What to do next Scheduled Follow-Up Appointments Sunday 12:15 PM EST With: NACHO KELSEY, Omari Tan Where: [facility] Ambulatory Visit Summary DEBI LIMA :1960 Visit Date:08/20/2023 Ambulatory Visit Instructions Your Diagnosis Cough BMI 37.0-37.9, adult Non-smoker Your Care Team Attending Physician - Shawna Roberts Primary Care Physician - Shawna Roberts This Is Your Medications List Misc Prescription (lancets) Misc Prescription (test strips) celecoxib (Celebrex) celecoxib (celecoxib 200 mg Cap) glipiZIDE (glipiZIDE 10 mg Tab) hydrochlorothiazide (hydrochlorothiazide 12.5 mg Cap) lisinopril (lisinopril 20 mg Tab) metformin (metformin 500 mg Tab) metoprolol (metoprolol 25 mg ER Tab) omeprazole (omeprazole 40 mg Cap-DR) semaglutide (Ozempic 2 mg/3 mL (0.25 mg or 0.5 mg dose) subcutaneous solution) solifenacin (Vesicare 10 mg Tab) Procedures Performed 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 Discharge Vitals Heart Rate (Peripheral) 78 Respiratory Rate 18 Blood Pressure 132/80 Height 162.0 cm Height 64 in Weight 99.2 kg Weight 218.24 lb BMI 37.8 What to do next Scheduled Follow-Up Appointments Sunday 12:15 PM EST With: Omari VELASQUEZ MD Where: [facility] [place]enton 08-20-2023 Consent [id number] TIFF [facility] Family Medicine Office/Clini c Noteon 08-20-2023 Family Medicine Office/Clinic Note HPI Staff Debi is a 63 year old female presenting for acute sick visit Questions/Concerns: pt has surgery scheduled for 08/30 for shoulder , pt states she feels like she has Phlegm caught in the back of her throat unable cough anything up. Does have a dry cough. pt needs refill on celecoxib History of Present Illness pt presents today c/o feeling like she has phlegm caught in her throat. has had it for at least a year Review of Systems PHQ Score Initial Depression Screen Score: 0 SCORE ROS - Provider Constitutional: no fever, no chills, no sweats, no fatigue Respiratory: no shortness of breath, no cough, no orthopnea, no wheezing. Cardiovascular: no chest pain, no palpitations, no edema. Neurologic: no headache, no dizziness, no numbness, no weakness. phlegmy cough Physical Exam Vitals & Measurements HR: 78(Peripheral) RR: 18 BP: 132/80 SpO2: 98% HT: 64 in HT: 162.0 cm WT: 99.2 kg WT: 218.24 lb BMI: 37.8 General: alert, no acute distress ENMT: oral mucosa moist, no pharyngeal erythema or exudate Cardiovascular: regular rate and rhythm, normal peripheral perfusion Respiratory: Lungs CTA, respirations non labored Extremities: no deformity, no trauma Neurological: oriented x 4, LOC appropriate for age, CN II-XII intact, motor strength equal & normal bilaterally, speech normal Assessment/Plan 1. Cough (R05.9: Cough, unspecified) pt presents today c/o feeling like she has phlegm in her throat and she is always coughing and clearing her throat. discussed Lisniopril possibly being the cause of this. pt is scheduled for shoulder surgery in 10 days. she was concerned the cough would be an issue for surgery. pt will return after recovering from surgery and we will switch her off of lisinopril to losartan. I do not want to adjust meds right before a surgery so we will hold off a few weeks since her BP is stable. pt agrees to this plan. she does has a moderate amount of clear fluid behind both ear drums. Will give kenalog in office today. all questions answered. 2. BMI 37.0-37.9, adult (Z68.37: Body mass index [BMI] 37.0-37.9, adult) BMI education complete 3. 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 Medications Celebrex, 200 mg, Oral, BID celecoxib 200 mg Cap, See Instructions glipiZIDE 10 mg Tab, 10 mg= 1 tab(s), Oral, Daily, 1 refills hydrochlorothiazide 12.5 mg Cap, 12.5 mg= 1 cap(s), Oral, Daily, 3 refills lancets, See Instructions, 3 refills lisinopril 20 mg Tab, 20 mg= 1 tab(s), Oral, Daily, 3 refills metformin 500 mg Tab, 500 mg= 1 tab(s), Oral, BID, 3 refills metoprolol 25 mg ER Tab, Oral, Daily omeprazole 40 mg Cap-DR, 40 mg= 1 cap(s), Oral, BID, 3 refills Ozempic 2 mg/3 mL (0.25 mg or 0.5 mg dose) subcutaneous solution, 0.25 mg, SubCutaneous, qWeek, 3 refills test strips, See Instructions, 3 refills Vesicare 10 mg Tab, 10 mg= 1 tab(s), Oral, Daily, 3 refills Allergies morphine (Seizure) Social History Tobacco Never (less than 100 in lifetime) Tobacco Use:. Never Smokeless Tobacco Use:. Household tobacco concerns: No., 08/20/2023 Family History Cardiac arrest: Father. Diabetes mellitus type 1: Mother. Hypertension: Mother and Father. Primary malignant neoplasm of colon: Father. Stroke: Mother and Father. Immunizations Vaccine Date Status Comments influenza virus vaccine, inactivated - Not Given Patient Refuses SARS-CoV-2 mRNA (toantonin 5y-11y) vac - Not Given Postpone due to refusal influenza virus vaccine, inactivated - Not Given Temporary contraindication - reschedule SARS-CoV-2 (COVID-19) Ad26 vaccine - Not Given Temporary contraindication - reschedule [facility] Comment on above: Result Comment: Elec tronically Signed By: Shawna Roberts\.br\Date and Time Signed: 08/20/23 09:00 EST Consultation Noteon 08-07-20 Consultation Note [id number] 0TIFF [facility] Screenson 07-04-2023 Screens [id number] 0CD:127 [facility] Ambulatory Visit Summaryon 1 Ambulatory Visit Summary DEBI LIMA :1960 Visit Date:07/03/2023 Ambulatory Visit Instructions Your Diagnosis Mixed incontinence Nocturia History of kidney stones Tests Performed Urnls Dip Stick Auto w/o Microscopy POC 05503 Your Care Team Attending Physician - KIKI GARCIA PA-C Primary Care Physician - Shawna Roberts This Is Your Medications List Contact prescribing physician if questions or concerns Misc Prescription (lancets) Misc Prescription (test strips) celecoxib (Celebrex) cephalexin (Keflex 500 mg Cap) glipiZIDE (glipiZIDE 10 mg Tab) hydrochlorothiazide (hydrochlorothiazide 12.5 mg Cap) lisinopril (lisinopril 20 mg Tab) metformin (metformin 500 mg Tab) metoprolol (metoprolol 25 mg ER Tab) omeprazole (omeprazole 40 mg Cap-DR) semaglutide (Ozempic 2 mg/3 mL (0.25 mg or 0.5 mg dose) subcutaneous solution) solifenacin (Vesicare 10 mg Tab) Procedures Performed 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 Discharge Vitals Height 162 cm Height 64 in Weight 100 kg Weight 220 lb BMI 38.1 What to do next Scheduled Follow-Up Appointments Sunday 12:15 PM EST With: NACHO KELSEY, Omari Tan Where: [facility] Shayla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 142/88 SpO2: 97% HT: 64 in HT: 162 cm WT: 99.8 kg WT: 219.56 lb BMI: 38.03 General: alert, no acute distress ENMT: oral mucosa moist, no pharyngeal erythema or exudate Cardiovascular: regular rate and rhythm, normal peripheral perfusion Respiratory: Lungs CTA, respirations non labored Extremities: no deformity, no trauma Neurological: oriented x 4, LOC appropriate for age, CN II-XII intact, motor strength equal & normal bilaterally, speech normal musculoskeletal: unable to lift arm in any direction without severe pain 07/10 Assessment/Plan 1. Injury of left shoulder and upper arm (S49.92XA: Unspecified injury of left shoulder and upper arm, initial encounter) pt presnts today with left should injury from falling off of a scooter. her right hand got caught in the refuse and recycling worker and her shoulder was caught in scooter and she then landed on it. she is unable to lift her arm in any direction without severe pain. fingers on right hand are bruised but not really bothering her. will order xray and refer to Dr. Ramos per pt request. she has seen him for other shoulder in the past. toradol given in office. pt declines anything for pain and declines steroids as well. All questions answered. RTC as needed Ordered: ketorolac, 30 mg = 1 mL, Injection, IntraMuscular, Once, Stop date 12/20/22 9:27:00 EDT, Routine, Start date 12/20/22 9:27:00 EDT, 12/20/22 9:27:00 [place] [facility] [place] XR Shoulder Complete Left 2. BMI 38.0-38.9,adult (Z68.38: Body mass index [BMI] 38.0-38.9, adult) BMi education complete 3. Obesity due to excess calories (E66.09: Other obesity due to excess calories) Follow-up No qualifying data available Problem List/Past Medical History Ongoing Arthritis BMI 38.0-38.9,adult Glucosuria Hematuria History of kidney stones Hypertension Incomplete bladder emptying Kidney stone Mixed incontinence Nephrolithiasis Nocturia Obesity due to excess calories Stress incontinence, female Urge incontinence Urgency of urination Urinary frequency Historical No qualifying data Procedure/Surgical History Cystoscopy (08/17/2020), Injection of therapeutic substance into bladder wall (03/09/2020), Ablation, Cholecystectomy, History of shoulder surgery, Tonsillectomy. Medications Celebrex, 200 mg, Oral, BID glipiZIDE 10 mg Tab hydrochlorothiazide 12.5 mg Cap, 12.5 mg= 1 cap(s), Oral, Daily, 3 refills lisinopril 20 mg Tab, 20 mg= 1 tab(s), Oral, Daily metformin 500 mg Tab metoprolol 25 mg ER Tab, Oral, Daily omeprazole 40 mg Cap-DR, 40 mg= 1 cap(s), Oral, BID Ozempic 2 mg/1.5 mL (0.25 mg or 0.5 mg dose) subcutaneous solution Vesicare 10 mg Tab, 10 mg= 1 tab(s), Oral, Daily, 3 refills Allergies morphine (Seizure) Social History Tobacco Never (less than 100 in lifetime) Tobacco Use:. Never Smokeless Tobacco Use:., 12/20/2022 Family History Cardiac arrest: Father. Diabetes mellitus type 1: Mother. Hypertension: Mother and Father. Primary malignant neoplasm of colon: Father. Stroke: Mother and Father. Immunizations Vaccine Date Status Comments influenza virus vaccine, inactivated - Not Given Patient Refuses SARS-CoV-2 mRNA (tozinameran 5y-11y) vac - Not Given Postpone due to refusal influenza virus vaccine, inactivated - Not Given Temporary contraindication - reschedule SARS-CoV-2 (COVID-19) Ad26 vaccine - Not Given Temporary contraindication - reschedule Normal [facility] Comment on above: Result Comment: Elec tronically Signed By: Shawna Roberts\.br\Date and Time Signed: 12/20/22 10:57 EDT Physician Referralon 023 Physician Referral [id number]. [id number]:127 Normal [facility] GLYCOHEMOGLOBIN A1Con 2021 ADA RECOMMENDATION SEE BELOW Normal [facility] Comment on above: Result Comment: ADA RECOMMENDED LIMIT 4.0 - 6.0 ADA THERAPEUTIC TARGET < 7.0 ACTION SUGGESTED > 7.0 Performed By: #### A 1C #### [facility] [address] [address] [address] Evelia Poole Glucose [Mass/Vol] 174 mg/dL Normal [facility] Comment on above: Performed By: #### A 1C #### [facility] [address] [address] [address] Evelia Poole HbA1c (Bld) [Mass fraction] 7.7 % Critically high 4.5-6.2 [facility] Comment on above: Performed By: #### A 1C #### [facility] [address] [address] [address] Evelia Poole XR KUB 1 VIEWon 09-18-2022 XR KUB 1 VIEW EXAMINATION: XR KUB 1 VIEW HISTORY: Kidney stone COMPARISON: XR KUB 01/29/2019 FINDINGS: KIDNEY/URETER - RIGHT: No visible renal or ureteral calcifications. KIDNEY/URETER - LEFT: No visible renal or ureteral calcifications. PELVIS: Innumerable pelvic calcifications; not appreciably changed, and favoring phleboliths. BOWEL: No abnormal dilation or deviation. BONES: No acute abnormality. OTHER: Negative. No abnormal gaseous collections. IMPRESSION: 1. No appreciable urinary tract calculi. Electronically authenticated by: AMMY CASEY Date: 2022-09-18 08:16 Normal [facility] GLYCOHEMOGLOBIN A1Con 2021 ADA RECOMMENDATION SEE BELOW Normal [facility] Comment on above: Result Comment: ADA RECOMMENDED LIMIT 4.0 - 6.0 ADA THERAPEUTIC TARGET < 7.0 ACTION SUGGESTED > 7.0 Performed By: #### A 1C #### [facility] [address] [address] [address] Evelia Poole Glucose [Mass/Vol] 177 mg/dL Normal [facility] Comment on above: Performed By: #### A 1C #### [facility] [address] [address] [address] Evelia Poole HbA1c (Bld) [Mass fraction] 7.8 % Critically high 4.5-6.2 [facility] Comment on above: Performed By: #### A 1C #### [facility] [address] [address] [address] Evelia Poole Complete Blood Count with Au to Diffon 12-07-2021 Basophils (Bld) [#/Vol] 0.03 10*3/uL Normal 0.00-0.20 [facility] Comment on above: Performed By: #### C CHAPIN, CBCAD #### [facility] [address] [place], [place] [id number] Basophils/100 WBC (Bld) 0.5 % Normal [facility] Comment on above: Performed By: #### C CHAPIN, CBCAD #### [facility] [address] [place], [place] [id number] Eosinophils (Bld) [#/Vol] 0.09 10*3/uL Normal 0.02-0.50 [facility] Comment on above: Performed By: #### C CHAPIN, CBCAD #### [facility] [address] [place], [place] [id number] Eosinophils/100 WBC (Bld) 1.5 % Normal [facility] Comment on above: Performed By: #### C CHAPIN, CBCAD #### [facility] [address] [place], [place] [id number] Erythrocyte distribution width (RBC) [Ratio] 12.8 % Normal 11.0-15.0 [facility] Comment on above: Performed By: #### C MP, CBCAD #### [facility] [address] [place], [place] [id number] Hematocrit (Bld) [Volume fraction] 43.8 % Normal 35.0-47.0 [facility] Comment on above: Performed By: #### C MP, CBCAD #### [facility] [address] [place], [place] [id number] Hemoglobin (Bld) [Mass/Vol] 14.7 g/dL Normal 11.6-15.5 [facility] Comment on above: Performed By: #### C MP, CBCAD #### [facility] [address] [place], [place] [id number] Lymphocytes (Bld) [#/Vol] 1.8 10*3/uL Normal 0.9-3.9 [facility] Comment on above: Performed By: #### C MP, CBCAD #### [facility] [address] [place], [place] [id number] Lymphocytes/100 WBC (Bld) 28.4 % Normal [facility] Comment on above: Performed By: #### C MP, CBCAD #### [facility] [address] [place], [place] [id number] MCH (RBC) [Entitic mass] 30.8 pg Normal 27.0-33.0 [facility] Comment on above: Performed By: #### C MP, CBCAD #### [facility] [address] [place], [place] [id number] MCHC (RBC) [Mass/Vol] 33.6 g/dL Normal 32.0-36.0 [facility] Comment on above: Performed By: #### C MP, CBCAD #### [facility] [address] [place], [place] [id number] MCV (RBC) [Entitic vol] 92 fL Normal 80-100 [facility] Comment on above: Performed By: #### C MP, CBCAD #### [facility] [address] [place], [place] [id number] Monocytes (Bld) [#/Vol] 0.5 10*3/uL Normal 0.2-0.9 [facility] Comment on above: Performed By: #### C MP, CBCAD #### [facility] [address] [place], [place] [id number] Monocytes/100 WBC (Bld) 8.4 % Normal [facility] Comment on above: Performed By: #### C MP, CBCAD #### [facility] [address] [place], [place] [id number] Neutrophils (Bld) [#/Vol] 3.7 10*3/uL Normal 1.5-7.8 [facility] Comment on above: Performed By: #### C MP, CBCAD #### [facility] [address] [place], [place] [id number] Neutrophils/100 WBC (Bld) 59.6 % Normal [facility] Comment on above: Performed By: #### C MP, CBCAD #### [facility] [address] [place], [place] [id number] Platelet mean volume (Bld) [Entitic vol] 10.90 fL Normal 7.50-12.50 [facility] Comment on above: Performed By: #### C MP, CBCAD #### [facility] [address] [place], [place] [id number] Platelets (Bld) [#/Vol] 247 10*3/uL Normal 140-400 [facility] Comment on above: Performed By: #### C MP, CBCAD #### [facility] [address] [place], [place] [id number] RBC (Bld) [#/Vol] 4.78 10*6/uL Normal 3.90-5.20 [facility] Comment on above: Performed By: #### C MP, CBCAD #### [facility] [address] [place], [place] [id number] RDW-SD 43.3 fL Normal 37.0-50.0 [facility] Comment on above: Performed By: #### C MP, CBCAD #### [facility] [address] [place], [place] [id number] WBC (Bld) [#/Vol] 6.2 10*3/uL Normal 3.8-11.0 [facility] [place] [facility] Comment on above: Performed By: #### C CHAPIN, CBCAD #### [facility] [address] [place], [place] [id number] Comprehensive Metabolic Pane martin 12-07-2021 Albumin [Mass/Vol] 4.7 g/dL Normal 3.6-5.1 [facility] [place] [facility] Comment on above: Performed By: #### C CHAPIN, CBCAD #### [facility] [address] [place], [place] [id number] Albumin/Globulin [Mass ratio] 2.0 {ratio} Normal 1.0-2.5 [facility] Comment on above: Performed By: #### C CHAPIN, CBCAD #### [facility] [address] [place], [place] [id number] ALP [Catalytic activity/Vol] 128 U/L High 35-119 [facility] Comment on above: Performed By: #### C CHAPIN, CBCAD #### [facility] [address] [place], [place] [id number] ALT [Catalytic activity/Vol] 58 U/L High 6-33 [facility] Comment on above: Result Comment: 08/31 Female reference range changed. Performed By: #### C CHAPIN, CBCAD #### [facility] [address] [place], [place] [id number] Anion gap [Moles/Vol] 18 mmol/L Normal 12-20 [facility] Comment on above: Result Comment: Effe ctive 10/06/2019 reference range changed. Performed By: #### C CHAPIN, CBCAD #### [facility] [address] [place], [place] [id number] AST [Catalytic activity/Vol] 52 U/L High 9-34 [facility] Comment on above: Performed By: #### C CHAPIN, CBCAD #### [facility] [address] [place], [place] [id number] BUN/CREA 23 Ratio High 6-22 [facility] Comment on above: Performed By: #### C CHAPIN, CBCAD #### [facility] [address] [place], [place] [id number] Calcium [Mass/Vol] 9.8 mg/dL Normal 8.6-10.2 [facility] Comment on above: Performed By: #### C MP, CBCAD #### [facility] [address] [place], [place] [id number] Chloride [Moles/Vol] 101 mmol/L Normal 98-107 [facility] Comment on above: Performed By: #### C MP, CBCAD #### [facility] [address] [place], [place] [id number] CO2 [Moles/Vol] 23 mmol/L Normal 20-31 [facility] Comment on above: Performed By: #### C MP, CBCAD #### [facility] [address] [place], [place] [id number] Creatinine [Mass/Vol] 0.7 mg/dL Normal 0.6-1.4 [facility] Comment on above: Performed By: #### C MP, CBCAD #### [facility] [address] [place], [place] [id number] eGFRAA 111 mL/min/1.73m2 Normal >60 [facility] Comment on above: Performed By: #### C MP, CBCAD #### [facility] [address] [place], [place] [id number] eGFRNAA 92 mL/min/1.73m2 Normal >60 [facility] Comment on above: Performed By: #### C MP, CBCAD #### [facility] [address] [place], [place] [id number] Globulin (S) [Mass/Vol] 2.3 g/dL Normal 1.9-3.7 [facility] Comment on above: Performed By: #### C MP, CBCAD #### [facility] [address] [place], [place] [id number] Glucose [Mass/Vol] 281 mg/dL High 65-99 [facility] Comment on above: Result Comment: For FASTING Glucose --- ADA reference ranges: Normal 65-99 mg/dl Prediabetes 100-125 Diabetes >/= 126 Performed By: #### C MP, CBCAD #### [facility] [address] [place], [place] [id number] Potassium [Moles/Vol] 4.0 mmol/L Normal 3.5-5.5 [facility] Comment on above: Performed By: #### C MP, CBCAD #### [facility] [address] [place], [place] [id number] Protein [Mass/Vol] 7.0 g/dL Normal 6.1-8.1 [facility] Comment on above: Performed By: #### C MP, CBCAD #### [facility] [address] [place], [place] [id number] Sodium [Moles/Vol] 138 mmol/L Normal 135-146 [facility] Comment on above: Performed By: #### C MP, CBCAD #### [facility] [address] [place], [place] [id number] TBIL <0.3 Normal [facility] Comment on above: Performed By: #### C CHAPIN, CBCAD #### [facility] [address] [place], [place] [id number] Urea nitrogen [Mass/Vol] 16 mg/dL Normal 7-25 [facility] Comment on above: Performed By: #### C CHAPIN, CBCAD #### [facility] [address] [place], [place] [id number] Q - CULTURE,URINE,ROUTINEon 12-07-2021 CULTURE, URINE, ROUTINE SEE NOTE Normal [facility] Comment on above: Order Comment: [facility] performed at: [facility], [address] [place] [address], [address] [place] [address], [phone], Torque Tester: Pablo Smith MD [facility] Collection Date/Time: [facility] Results Received Date/Time: [facility] Reported Date/Time: FASTING: NO Result Comment: CULT URE, URINE, ROUTINE Micro Number: [id number] Test Status: Final Specimen Source: Urine Specimen Quality: Adequate Result: No Growth Performed By: #### 7 63X, 3020X, %SBCULI, 26F, 6304R #### [facility] [address] [place] [address] Q - PROTHROMBIN TIME WITH IN Primo 12-07-2021 INR Coag (PPP) [Relative time] 1.0 {INR} Normal [facility] Comment on above: Order Comment: [facility] performed at: [employer] [employer] [facility], [address] [place] [address], [address] [place] [address], [phone], Torque Tester: Pablo Smith MD [facility] Date/Time: [facility] Results Received Date/Time: [facility] Reported Date/Time: FASTING: NO Result Comment: Refe rence Range 0.9-1.1 Moderate-intensity Warfarin Therapy 2.0-3.0 Higher-intensity Warfarin Therapy 3.0-4.0 Performed By: #### 7 63X, 3020X, %SBCULI, 26F, 6304R #### [facility] [address] [facility] [place] [address] PT Coag (PPP) [Time] 9.6 s Normal 9.0-11.5 [facility] Comment on above: Order Comment: [facility] performed at: [employer] [employer] [facility], [address] [place] [address], [address] [place] [address], [place], [place], [address] [place] [address], Torque Tester: Pablo Smith MD [facility] Date/Time: [facility] Results Received Date/Time: [facility] Reported Date/Time: FASTING: NO Result Comment: For additional information, please refer to http://education.RIISnet/faq/TTG571 (This link is being provided for informational/ educational purposes only.) Performed By: #### 7 63X, 3020X, %SBCULI, 26F, 6304R #### [facility] [address] [place] [address] Q - PTTon 12-07-2021 PARTIAL THROMBOPLASTIN TIME, ACTIVATED 25 sec Normal 23-32 [facility] Comment on above: Order Comment: [facility] performed at: [employer] [employer] [facility], [address] [place] [address], [address] [place] [address], [phone], Torque Tester: Pablo Smith MD [facility] Date/Time: [facility] Results Received Date/Time: [facility] Reported Date/Time: FASTING: NO Result Comment: This test has not been validated for monitoring unfractionated heparin therapy. For testing that is validated for this type of therapy, please refer to the Heparin Anti-Xa assay (test code 55390). For additional information, please refer to http://education.Kwestr/faq/UPG331 (This link is being provided for informational/educational purposes only.) Performed By: #### 7 63X, 3020X, %SBCULI, 26F, 6304R #### [facility] [address] [place] [address] Q - UR CULT [id number] 2021 REFLEXIVE URINE CULTURE SEE NOTE Normal [facility] Comment on above: Order Comment: [facility] performed at: [employer] [facility], [address] [facility], [address] [place] [address], [phone], Torque Tester: Pablo Smith MD [facility] Date/Time: [facility] Results Received Date/Time: [facility] Reported Date/Time: FASTING: NO Result Comment: CULT URE INDICATED - RESULTS TO FOLLOW Performed By: #### 7 63X, 3020X, %SBCULI, 26F, 6304R #### [facility] [address] [place] [address] Q - URINALYSIS,COMPLETE,WITH REFLEX TO CULTUREon 12-07-2021 Appearance (U) CLEAR Normal CLEAR [facility] Comment on above: Order Comment: [facility] performed at: [employer] [facility], [address] [facility], [address] [place] [address], [phone], Torque Tester: Pablo Smith MD [facility] Date/Time: [facility] Results Received Date/Time: [facility] Reported Date/Time: FASTING: NO Performed By: #### 7 63X, 3020X, %SBCULI, 26F, 6304R #### [facility] [address] [place] [address] BACTERIA NONE SEEN Normal NONE SEEN [facility] Comment on above: Order Comment: [facility] performed at: [employer] [employer] [facility], [address], [address] [place] [address], [address] [place] [address], Torque Tester: Pablo Smith MD [facility] Date/Time: [facility] Results Received Date/Time: [facility] Reported Date/Time: FASTING: NO Performed By: #### 7 63X, 3020X, %SBCULI, 26F, 6304R #### [facility] [address] [place] [address] Bilirubin Ql (U) Negative Normal NEGATIVE [facility] Comment on above: Order Comment: [facility] performed at: [employer] [employer] [facility], [address], [address] [place] [address], [address] [place] [address], Torque Tester: Pablo Smith MD [facility] Date/Time: [facility] Results Received Date/Time: [facility] Reported Date/Time: FASTING: NO Performed By: #### 7 63X, 3020X, %SBCULI, 26F, 6304R #### [facility] [address] [place] [address] Color (U) YELLOW Normal YELLOW [facility] Comment on above: Order Comment: [facility] performed at: [employer] [employer] [facility], [address], [address] [place] [address], [address] [place] [address], Torque Tester: Pablo Smith MD [facility] Date/Time: [facility] Results Received Date/Time: [facility] Reported Date/Time: FASTING: NO Performed By: #### 7 63X, 3020X, %SBCULI, 26F, 6304R #### [facility] [address] [place] [address] Glucose Ql (U) 3+ Abnormal NEGATIVE [facility] Comment on above: Order Comment: [facility] performed at: [employer] [employer] [facility], [address] [facility], [address] [place] [address], [address] [place] [address], Torque Tester: Pablo Smith MD [facility] Date/Time: [facility] Results Received Date/Time: [facility] Reported Date/Time: FASTING: NO Performed By: #### 7 63X, 3020X, %SBCULI, 26F, 6304R #### [facility] [address] [place] [address] HYALINE CAST NONE SEEN Normal NONE SEEN [facility] Comment on above: Order Comment: [facility] performed at: [employer] [employer] [facility], [address] [place] [address], [address] [place] [address], [address] [place] [address], Torque Tester: Pablo Smith MD [facility] Date/Time: [facility] Results Received Date/Time: [facility] Reported Date/Time: FASTING: NO Performed By: #### 7 63X, 3020X, %SBCULI, 26F, 6304R #### [facility] Default [address] [place] [address] Ketones Ql (U) Negative Normal NEGATIVE [facility] Cashier Wrapper Comment on above: Order Comment: [facility] Testing performed at: [employer] [facility], [address] , [address] [place] [address], [address] [place] [address], Torque Tester: Pablo Smith MD [facility] Collection Date/Time: [facility] Results Received Date/Time: [facility] Reported Date/Time: FASTING: NO Performed By: #### 7 63X, 3020X, %SBCULI, 26F, 6304R #### [facility] Default [address] [place] [address] Leukocyte esterase Test strip Ql (U) Negative Normal NEGATIVE [facility] Comment on above: Order Comment: [facility] Testing performed at: [employer] [facility], [address] , [address] [place] [address], [phone], Torque Tester: Pablo Smith MD [facility] Collection Date/Time: [facility] Results Received Date/Time: [facility] Reported Date/Time: FASTING: NO Performed By: #### 7 63X, 3020X, %SBCULI, 26F, 6304R #### [facility] Default [address] [place] [address] Nitrite Ql (U) Negative Normal NEGATIVE [facility] Cashier Wrapper Comment on above: Order Comment: [facility] Testing performed at: [employer] [facility], [address] , [address] [place] [address], [phone], Torque Tester: Pablo Smith MD [facility] Collection Date/Time: [facility] Results Received Date/Time: [facility] Reported Date/Time: FASTING: NO Performed By: #### 7 63X, 3020X, %SBCULI, 26F, 6304R #### [facility] Default [address] [place] [address] OCCULT BLOOD Negative Normal NEGATIVE [facility] Cashier Wrapper Comment on above: Order Comment: [facility] Testing performed at: [employer] [facility], [address] [place] [address], [address] [place] [address], [phone], Torque Tester: Pablo Smith MD [facility] Collection Date/Time: [facility] Results Received Date/Time: [facility] Reported Date/Time: FASTING: NO Performed By: #### 7 63X, 3020X, %SBCULI, 26F, 6304R #### [facility] Default [address] [place] [address] pH (U) [pH] Normal 5.0-8.0 [facility] Cashier Wrapper Comment on above: Order Comment: [facility] Testing performed at: [employer] [facility], [address] [facility], [address] [place] [address], [address] [place] [address], Torque Tester: Pablo Smith MD [facility] Collection Date/Time: [facility] Results Received Date/Time: [facility] Reported Date/Time: FASTING: NO Performed By: #### 7 63X, 3020X, %SBCULI, 26F, 6304R #### [facility] Default [address] [place] [address] Protein Ql (U) Negative Normal NEGATIVE [facility] Cashier Wrapper Comment on above: Order Comment: [facility] Testing performed at: [employer] [facility], [address] [place] [address], [address] [place] [address], [address] [place] [address], Torque Tester: Pablo Smith MD [facility] Collection Date/Time: [facility] Results Received Date/Time: [facility] Reported Date/Time: FASTING: NO Performed By: #### 7 63X, 3020X, %SBCULI, 26F, 6304R #### [facility] Default [address] [place] [address] RBC NONE SEEN Normal < OR = 2 [facility] Cashier Wrapper Comment on above: Order Comment: [facility] Testing performed at: [employer] [facility], [address] [facility], [address] [place] [address], [address] [place] [address], Torque Tester: Pablo Smith MD [facility] Collection Date/Time: [facility] Results Received Date/Time: [facility] Reported Date/Time: FASTING: NO Performed By: #### 7 63X, 3020X, %SBCULI, 26F, 6304R #### [facility] Default [address] [place] [address] Specific gravity (U) [Rel density] 1.035 Normal 1.001-1.035 [facility] Cashier Wrapper Comment on above: Order Comment: [facility] Testing performed at: [employer] [facility], 5 [facility], [address] [place] [address], [address] [place] [address], Torque Tester: Pablo Smith MD [facility] Collection Date/Time: [facility] Results Received Date/Time: [facility] Reported Date/Time: FASTING: NO Performed By: #### 7 63X, 3020X, %SBCULI, 26F, 6304R #### [facility] [address] [place] [address] SQUAMOUS EPITHELIAL CELLS 0-5 Normal < OR = 5 [facility] Cashier Wrapper Comment on above: Order Comment: [facility] Testing performed at: [employer] [facility], [address] [facility], [address] [place] [address], [address] [place] [address], Torque Tester: Pablo Smith MD [facility] Collection Date/Time: [facility] Results Received Date/Time: [facility] Reported Date/Time: FASTING: NO Performed By: #### 7 63X, 3020X, %SBCULI, 26F, 6304R #### [facility] Default [address] [place] [address] WBC 6-10 Abnormal < OR = 5 [facility] Cashier Wrapper Comment on above: Order Comment: [facility] Testing performed at: [employer] [facility], 5 [facility], [address] [place] [address], [address] [place] [address], Torque Tester: Pablo Smith MD [facility] Collection Date/Time: [facility] Results Received Date/Time: [facility] Reported Date/Time: FASTING: NO Performed By: #### 7 63X, 3020X, %SBCULI, 26F, 6304R #### [facility] Default [address] [place] [address] Vital Signs Date Time Vital Sign Value Performing Clinician Ky harrington 10-09-2022 12:00-0500 Blood Pressure Location Omari VELASQUEZ [facility] 10-09-2022 12:00-0500 Diastolic blood pressure 82 mm[Hg] Omari VELASQUEZ [facility] 10-09-2022 12:00-0500 Heart rate 74 /min Omari VELASQUEZ [facility] 10-09-2022 12:00-0500 Respiratory rate 16 /min Omari VELASQUEZ [facility] 10-09-2022 12:00-0500 Systolic blood pressure 130 mm[Hg] Omari VELASQUEZ [facility] Encounters Encounter Date Encounter Type Care Provider Facility Start: 11-27-2023 End: 11-27-2023 ambulatory PHYLLIS KELBLEY Not Available Start: 11-22-2023 End: 11-22-2023 ambulatory PHYLLIS KELBLEY Not Available Start: 11-20-2023 End: 11-21-2023 ambulatory PHYLLIS KELBLEY Not Available Start: 11-16-2023 Chart abstracting Elena BERGERON Work Phone: [facility] Start: 11-16-2023 End: 11-16-2023 ambulatory ELENA APODACA Not Available Start: 11-15-2023 End: 11-15-2023 ambulatory PHYLLIS KELBLEY Not Available Start: 11-15-2023 End: 11-15-2023 ambulatory Phyllis Kelbley [facility] Comment on above: S/P arthroscopy of l eft shoulder (Primary Dx); Acute pain of left shoulder Start: 11-13-2023 Bamboo flowsheet Wei Brink [facility] Start: 11-13-2023 Bamboo flowsheet Wei Brink [facility] Start: 11-13-2023 End: 11-13-2023 ambulatory Wei Brink [facility] Comment on above: S/P arthroscopy of l eft shoulder (Primary Dx); Acute pain of left shoulder Start: 11-08-2023 End: 11-08-2023 ambulatory Phyllis Kelbley [facility] Comment on above: S/P arthroscopy of l eft shoulder (Primary Dx); Acute pain of left shoulder Start: 11-08-2023 Bamboo flowsheet Phyllis Kelbley [facility] Start: 11-08-2023 Bamboo flowsheet Phyllisnhi Shibley [facility] Start: 11-06-2023 End: 11-06-2023 ambulatory PHYLLIS DODGEY Not Available Start: 11-01-2023 End: 11-01-2023 ambulatory Phyllis Dodgey [facility] Comment on above: S/P arthroscopy of l eft shoulder (Primary Dx); Acute pain of left shoulder Start: 11-01-2023 Bamboo flowsheet Phyllis Kelbley [facility] Start: 11-01-2023 Bamboo flowsheet Phyllis Jose Guadalupebley [facility] Start: 10-30-2023 End: 10-30-2023 ambulatory JEREMIAH PATIÑOKARIE Not Available Start: 10-26-2023 End: 10-26-2023 ambulatory ELENA APODACA Not Available Start: 10-25-2023 End: 10-25-2023 ambulatory PHYLLIS DENIS Not Available Start: 10-18-2023 End: 10-18-2023 ambulatory COLTEN ESTRADA Not Available Start: 10-17-2023 End: 10-18-2023 ambulatory 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 Shawna L Carol [place] Start: 10-17-2023 End: 10-17-2023 Lab Drop off Shawna [facility] Start: 10-16-2023 End: 10-16-2023 ambulatory PHYLLIS DENIS Not Available Start: 10-15-2023 End: 10-16-2023 ambulatory Omari VELASQUEZ Facility:[facility] Start: 10-15-2023 End: 10-15-2023 Patient encounter procedure Omari VELASQUEZ [facility] Start: 10-12-2023 End: 10-12-2023 ambulatory ELENA APODACA Not Available Start: 10-11-2023 End: 10-11-2023 ambulatory PHYLLIS DODGEY Not Available Start: 10-09-2023 End: 10-09-2023 ambulatory PHYLLIS DENIS Not Available Start: 10-05-2023 End: 10-05-2023 ambulatory PHYLLIS DODGEY Not Available Start: 10-02-2023 End: 10-02-2023 ambulatory PHYLLIS DODGEY Not Available Start: 09-28-2023 End: 09-29-2023 ambulatory YOLY VILLASENOR Not Available Start: 09-25-2023 End: 09-25-2023 ambulatory PHYLLIS DENIS Not Available Start: 09-20-2023 End: 09-21-2023 ambulatory YOLY VILLASENOR Not Available Start: 09-14-2023 End: 09-14-2023 ambulatory ELENA APODACA Not Available Start: 08-20-2023 End: 08-21-2023 ambulatory 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 Shawna Nelson Facility:[facility] Start: 07-03-2023 End: 07-04-2023 ambulatory KIKI GARCIA Facility: [place] Start: 05-08-2023 End: 05-09-2023 ambulatory KIKI GARCIA Facility: [facility] Start: 05-08-2023 End: 05-08-2023 Patient encounter procedure KIKI GARCIA [facility] Start: 04-26-2023 End: 04-26-2023 ambulatory MD Sachin Dickson Work Phone: [facility] Work Phone: Start: 04-26-2023 End: 04-26-2023 Patient encounter procedure MD Sachin Dickson Work Phone: [facility] [address] Work Phone: Start: 04-24-2023 End: 04-25-2023 ambulatory Omari VELASQUEZ [place] Start: 04-16-2023 ambulatory Omari VELASQUEZ Facili ty:[facility] Start: 04-16-2023 End: 04-17-2023 ambulatory Omari VELASQUEZ Facility: [facility] Start: 04-16-2023 End: 04-16-2023 Patient encounter procedure Omair VELASQUEZ [facility] Start: 01-10-[address] SACHIN DICKSON . Facil ity:[facility] Start: 12-21-2022 End: 12-22-2022 ambulatory SHAWNA L CAROL . Facility:[facility] Start: 12-20-2022 End: 12-21-2022 ambulatory 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 Shawna L Carol Facility:[facility] [place] [facility] Start: 12-19-2022 ambulatory KIKI RADHA Facility :[facility] Start: 10-09-2022 End: 10-09-2022 Patient encounter procedure Omari Tan VELASQUEZ [facility] Start: 09-18-2022 End: 09-19-2022 ambulatory KIKI GARCIA Facility:[facility] Start: 06-09-2022 End: 06-10-[address] SACHIN DICKSON . 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 Omari VELASQUEZ Start: 03-09-2020 Injection of therape utic substance into bladder wall Omari VELASQUEZ Cholecystectomy Omari ORONA Destructive procedure Bk VELASQUEZ History of operative procedure on shoulder Omari VELASQUEZ Tonsillectomy Omari VELASQUEZ Plan of Treatment Date Care Activity Detail Author Start: 11-16-2023 Chart abstracting 11/16/2023 A bstract [facility] [address] [place] [address] Elena Apodaca PA [address] [place] [address] [facility] Start: 11-16-2023 End: 11-16-2023 Patient encounter procedure 11/16/2023 9:15 AM EST Office Visit [facility] [address] [place] [address] Elena Apodaca PA [address] [place] [address] [facility] Start: 11-15-2023 End: 11-15-2023 ambulatory 11/15/2023 12:30 PM EST Treatment [facility] [address] [place] [address] Phyllis Denis, [facility] Start: 11-13-2023 End: 11-13-2023 ambulatory [facility] Comment on above: Arrived Start: 11-08-2023 End: 11-08-2023 ambulatory [facility] Comment on above: Arrived Start: 11-06-2023 End: 11-06-2023 ambulatory 11/06/2023 1:00 PM EST Treatment [facility] [address] [place] [address] Phyllis Denis, [facility] Immunizations Immunization Date Immunization Notes Care Provider Fa cility NEGATED: Highlighted row has not occurred!12-20-2022 influenza virus vaccine, unspecified formulation Omari VELASQUEZ [facility] NEGATED: Highlighted row has not occurred!12-20-2022 SARS-CoV-2 mRNA (tozinamgayathrin 5y-11y) vaccine Omari VELASQUEZ [facility] Payers Date Payer Category Payer Unknown [id number] 1960 Unknown [id number] 2.16.840.1.033380.3.579.2.593 1962 Unknown [id number] 2.16.840.1.576273.3.579.2.593 1962 Unknown [id number] 2.16.840.1.760230.3.579.2.593 1962 Unknown [id number] 2.16.840.1.298869.3.579.2.593 1962 Unknown [id number] 2.16.840.1.421407.3.579.2.593 1962 Unknown [id number] 2.16.840.1.742799.3.579.2.727 1962 Unknown [id number] 2.16.840.1.783337.3.579.2.727 1962 Unknown [id number] 2.16.840.1.121439.3.579.2.727 1962 Unknown [id number] 2.16.840.1.881703.3.579.2.727 1962 Unknown [id number] 2.16.840.1.388163.3.579.2.727 1962 Unknown [id number] 2.16.840.1.478482.3.579.2.727 1962 Unknown [id number] 2.16.840.1.923389.3.579.2.727 1962 Unknown [id number] 2.16.840.1.465391.3.579.2. 1962 Unknown [id number] 2.16.840.1.751084.3.579.2. 1962 Unknown [id number] 2.16.840.1.345408.3.579.2. 1962 Unknown [id number] 2.16.840.1.757048.3.579.2.1258 1962 Unknown [id number] 2.16.840.1.303986.3.579.2.1258 1962 Unknown [id number] 2.16.840.1.223549.3.579.2.1258 1962 Unknown [id number] 2.16.840.1.177524.3.579.2.1258 1962 Unknown [id number] 2.16.840.1.538084.3.579.2.1258 1962 Unknown [id number] 2.16.840.1.629316.3.579.2.1258 1962 Unknown [id number] 2.16.840.1.124016.3.579.2.1258 1962 Unknown [id number] 2.16.840.1.870678.3.579.2.1258 1962 Unknown [id number] 2.16.840.1.174090.3.579.2.1258 1962 Unknown [id number] 2.16.840.1.076977.3.579.2.1258 1962 Unknown [id number] 2.16.840.1.784903.3.579.2.1258 1962 Unknown [id number] 2.16.840.1.380914.3.579.2.1258 1962 Unknown [id number] 2.16.840.1.164235.3.579.2.1259 1962 Unknown [id number] 2.16.840.1.177414.3.579.2.9 1962 Unknown [id number] 2.16.840.1.859380.3.579.2.9 1962 Unknown [id number] 2.16.840.1.411793.3.579.2.1258 1962 Unknown [id number] 2.16.840.1.052413.3.579.2.1258 1962 Unknown [id number] 2.16.840.1.315828.3.579.2.1258 1962 Unknown [id number] 2.16.840.1.624238.3.579.2.9 1962 Unknown [id number] 2.16.840.1.664754.3.579.2.1258 1962 Unknown [id number] 2.16.840.1.827173.3.579.2.1258 1962 Unknown [id number] 2.16.840.1.106077.3.579.2.1258 1962 Unknown [id number] 2.16.840.1.008177.3.579.2.1259 1959 Self-pay 1959 Unknown [id number] 1959 Unknown [id number] Private Health Insurance [employer] [id number] Unknown [id number] 2.16.840.1.706072.3.579.2.531 Social History Date Type Detail Facility Start: 11-30-2021 End: 05-04-2023 Tobacco smoking status Never smoked tobacco (finding) [facility] Tobacco smoking status Never [facility] Start: 09-14-2023 Sex Assigned At Female F [facility] Start: 1960 Sex Assigned At Female F [facility] Start: 05-04-2023 Tobacco use and exposure Smokeless tobacco non-user [facility] Start: 10-22-2023 Alcohol intake Lifetime non-d adele (finding) [facility] Start: 09-14-2023 History of Social function [facility] Start: 1960 Sex Assigned At Not on file N [facility] Medical Equipment Procedure Code Equipment Code Equipment Origin al Text Equipment Identifier Dates Arthroplasty, knee, total, minimally invasive Orthopaedic cement, non-medicated [id number] FDA Start: 10-03-2019 Arthroplasty, knee, total, minimally invasive Tibial insert ()[id number] FDA Start: 10-03-2019 Arthroplasty, knee, total, minimally invasive Uncoated knee femur prosthesis [id number] FDA Start: 10-03-2019 Arthroplasty, knee, total, minimally invasive Polyethylene patella prosthesis ()[id number] FDA Start: 10-03-2019 Arthroplasty, knee, total, minimally invasive Uncoated knee tibia prosthesis, metallic ()[id number] FDA Start: 10-03-2019 lancets, See Instructions, 100 EA, 3, test glucose daily dx E11.9, [facility], Supply, 162, cm, 12/20/22 9:07:00 EDT, Height/Length Dosing, 99.8, kg, 12/20/22 9:35:00 EDT, Weight Dosing Start: 02-06-2023 test strips, See Instructions, 100 EA, 3, glucometer test strips to check blood sugars daily dx: glucosuria, [facility], Supply, 162, cm, 12/20/22 9:07:00 EDT, Height/Length Dosing, 99.8, kg, 12/20/22 9:35:00 EDT, Weight Dosing Start: 2023 lancets, See Instructions, 100 EA, 3, test glucose daily dx E11.9, [facility], Supply, 162, cm, 12/20/22 9:07:00 EDT, Height/Length Dosing, 99.8, kg, 12/20/22 9:35:00 EDT, Weight Dosing Start: 02-06-2023 test strips, See Instructions, 100 EA, 3, glucometer test strips to check blood sugars daily dx: glucosuria, [facility], Supply, 162, cm, 12/20/22 9:07:00 EDT, Height/Length Dosing, 99.8, kg, 12/20/22 9:35:00 EDT, Weight Dosing Start: 2023 lancets, See Instructions, 100 EA, 3, test glucose daily dx E11.9, [facility], Supply, 162, cm, 12/20/22 9:07:00 EDT, Height/Length Dosing, 99.8, kg, 12/20/22 9:35:00 EDT, Weight Dosing Start: 02-06-2023 test strips, See Instructions, 100 EA, 3, glucometer test strips to check blood sugars daily dx: glucosuria, [facility], Supply, 162, cm, 12/20/22 9:07:00 EDT, Height/Length Dosing, 99.8, kg, 12/20/22 9:35:00 EDT, Weight Dosing Start: 2023 lancets, See Instructions, 100 EA, 3, test glucose daily dx E11.9, [facility], Supply, 162, cm, 12/20/22 9:07:00 EDT, Height/Length Dosing, 99.8, kg, 12/20/22 9:35:00 EDT, Weight Dosing Start: 02-06-2023 test strips, See Instructions, 100 EA, 3, glucometer test strips to check blood sugars daily dx: glucosuria, [facility], Supply, 162, cm, 12/20/22 9:07:00 EDT, Height/Length Dosing, 99.8, kg, 12/20/22 9:35:00 EDT, Weight Dosing Start: 2023 Functional Status Date Assessment Result Facility 10-09-2022 Functional Status N/A [facility] Clinical Notes 10-09-2022 to 04-24-2023 Note Date & Type Note Facility 04-24-2023 Note [id number]:[id number] [facility] 04-24-2023 Note Custom Cystoscopy with Botox injection ? Voiding after the procedure: there may be some pain, burning, urgency, frequency and blood tinged urine following the procedure. These symptoms usually resolve within 2-5 days. Drink the amount of fluid it takes to keep the urine pink to yellow or clear in color. Drinking enough water and fluids will help to ease any discomfort after your procedure. ? It may take a few days to a week to notice a gradual improvement in the overactive bladder symptoms. ? If you are having problems that seem out of the ordinary, please call. ? If unable to contact your physician and you feel it is an emergency, go to the nearest emergency room or call 911 ? Do not lift more than fifteen pounds for 1-2 days. If you see a lot of blood, you probably did too much. ? Diet ? you may resume your normal diet. ? Pain control ? You may take extra strength Tylenol or Motrin for discomfort. ? Call if you have a fever over 100 degrees. [facility] 10-09-2022 [facility] Discharg e instructions Follow Up Care 10/09/2022 12:52:56 With:NACHO KELSEY, Omari Tan, URL Address: [facility] [address] , [place] [phone] When: Unknown [facility] 10-09-2022 [facility] Discharg e instructions Patient Education 10/09/2022 12:46:27 Urinary Incontinence Urinary Incontinence Urinary incontinence refers to a condition in which a person is unable to control where and when to pass urine. A person with this condition will urinate when he or she does not mean to (involuntarily). What are the causes? This condition may be caused by: Medicines. Infections. Constipation. Overactive bladder muscles. Weak bladder muscles. Weak pelvic floor muscles. These muscles provide support for the bladder, intestine, and, in women, the uterus. Enlarged prostate in men. The prostate is a gland near the bladder. When it gets too big, it can pinch the urethra. With the urethra blocked, the bladder can weaken and lose the ability to empty properly. Surgery. Emotional factors, such as anxiety, stress, or post-traumatic stress disorder (PTSD). Pelvic organ prolapse. This happens in women when organs shift out of place and into the vagina. This shift can prevent the bladder and urethra from working properly. What increases the risk? The following factors may make you more likely to develop this condition: Older age. Obesity and physical inactivity. and childbirth. Menopause. Diseases that affect the nerves or spinal cord (neurological diseases). Long-term (chronic) coughing. This can increase pressure on the bladder and pelvic floor muscles. What are the signs or symptoms? Symptoms may vary depending on the type of urinary incontinence you have. They include: A sudden urge to urinate, but passing urine involuntarily before you can get to a bathroom (urge incontinence). Suddenly passing urine with any activity that forces urine to pass, such as coughing, laughing, exercise, or sneezing (stress incontinence). Needing to urinate often, but urinating only a small amount, or constantly dribbling urine (overflow incontinence). Urinating because you cannot get to the bathroom in time due to a physical disability, such as arthritis or injury, or communication and thinking problems, such as Alzheimer disease (functional incontinence). How is this diagnosed? This condition may be diagnosed based on: Your medical history. A physical exam. Tests, such as: ?Urine tests. ?X-rays of your kidney and bladder. ?Ultrasound. ?CT scan. ?Cystoscopy. In this procedure, a health care provider inserts a tube with a light and camera (cystoscope) through the urethra and into the bladder in order to check for problems. ?Urodynamic testing. These tests assess how well the bladder, urethra, and sphincter can store and release urine. There are different types of urodynamic tests, and they vary depending on what the test is measuring. To help diagnose your condition, your health care provider may recommend that you keep a log of when you urinate and how much you urinate. How is this treated? Treatment for this condition depends on the type of incontinence that you have and its cause. Treatment may include: Lifestyle changes, such as: ?Quitting smoking. ?Maintaining a healthy weight. ?Staying active. Try to get 150 minutes of moderate-intensity exercise every week. Ask your health care provider which activities are safe for you. ?Eating a healthy diet. ?Avoid high-fat foods, like fried foods. ?Avoid refined carbohydrates like white bread and white rice. ?Limit how much alcohol and caffeine you drink. ?Increase your fiber intake. Foods such as fresh fruits, vegetables, beans, and whole grains are healthy sources of fiber. Pelvic floor muscle exercises. Bladder training, such as lengthening the amount of time between bathroom breaks, or using the bathroom at regular intervals. Using techniques to suppress bladder urges. This can include distraction techniques or controlled breathing exercises. Medicines to relax the bladder muscles and prevent bladder spasms. Medicines to help slow or prevent the growth of a man's prostate. Botox injections. These can help relax the bladder muscles. Using pulses of electricity to help change bladder reflexes (electrical nerve stimulation). For women, using a biomedical scientist to prevent urine leaks. This is a small, tampon-like, disposable device that is inserted into the urethra. Injecting collagen or carbon beads (bulking agents) into the urinary sphincter. These can help thicken tissue and close the bladder opening. Surgery. Follow these instructions at home: Lifestyle Limit alcohol and caffeine. These can fill your bladder quickly and irritate it. Keep yourself clean to help prevent odors and skin damage. Ask your doctor about special skin creams and cleansers that can protect the skin from urine. Consider wearing pads or adult diapers. Make sure to change them regularly, and always change them right after experiencing incontinence. General instructions Take [id number] and prescription medicines only as told by your health care provider. Use the bathroom about every 3 4 hours, even if you do not feel the need to urinate. Try to empty your bladder completely every time. After urinating, wait a minute. Then try to urinate again. Make sure you are in a relaxed position while urinating. If your incontinence is caused by nerve problems, keep a log of the medicines you take and the times you go to the bathroom. Keep all follow-up visits as told by your health care provider. This is important. Contact a health care provider if: You have pain that gets worse. Your incontinence gets worse. Get help right away if: You have a fever or chills. You are unable to urinate. You have redness in your groin area or down your legs. Summary Urinary incontinence refers to a condition in which a person is unable to control where and when to pass urine. This condition may be caused by medicines, infection, weak bladder muscles, weak pelvic floor muscles, enlargement of the prostate (in men), or surgery. The following factors increase your risk for developing this condition: older age, obesity, and childbirth, menopause, neurological diseases, and chronic coughing. There are several types of urinary incontinence. They include urge incontinence, stress incontinence, overflow incontinence, and functional incontinence. This condition is usually treated first with lifestyle and behavioral changes, such as quitting smoking, eating a healthier diet, and doing regular pelvic floor exercises. Other treatment options include medicines, bulking agents, medical devices, electrical nerve stimulation, or surgery. This information is not intended to replace advice given to you by your health care provider. Make sure you discuss any questions you have with your health care provider. Document Released: 10/25/2005 Document Revised: 09/27/2018 Document Reviewed: 12/27/2017 [employer] Patient Education [employer]. Follow Up Care 11/30/2021 16:02:19 With:Omari VELASQUEZ MD, URL Address: [facility] [address], [place] [address]- [phone] When:Within 1 Year(s) [facility] Evaluation + Plan note Future Appointments Appointment Date:10/15/2023 12:15:00 PM Scheduled Provider:Omari VELASQUEZ MD Location:[facility] Appointment Type:URO Office Visit [facility] Evaluation + Plan note Future Appointments Appointment Date:04/17/2023 08:00:00 AM Scheduled Provider: Location:[facility] Appointment Type:Urology CALL PAT FT Appointment Date:04/24/2023 02:00:00 PM Scheduled Provider: Location:[facility] Appointment Type:Urology FT Appointment Date:05/08/2023 03:00:00 PM Scheduled Provider:KIKI GARCIA PA-C Location:[facility] Appointment Type:URO Office Visit Appointment Date:10/15/2023 12:15:00 PM Scheduled Provider:Omari VELASQUEZ MD Location:[facility] Appointment Type:URO Office Visit [facility] Evaluation + Plan note Future Appointments Appointment Date:10/17/2023 11:00:00 AM Scheduled Provider:Shawna Roberts Location:[facility] Appointment Type:FM Open [facility] Evaluation note No assessment inform ation available [facility] Work Phone: Evaluation note Diagnosis S/P arthroscopy of left shoulder- Primary Acute pain of left shoulder [facility] Diagnosis S/P arthroscopy of left shoulder- Primary Acute pain of left shoulder [facility] Narrative No data available for this section [facility] Hospital Discharge instructions No data available for this section [facility] progress note No data available for this section [facility] reason for visit Narrative* Consultation (Routine) - Authorized Specialty Diagnoses / Procedures Referred By Gilma boykin Referred To Contact Physical Therapy Diagnoses S/P arthroscopy of left shoulder Procedures MO MANUAL THERAPY TQS 1/> REGIONS EACH 15 MINUTES MO THERAPEUTIC PX 1/> AREAS EACH 15 MIN EXERCISES PHYS/OCC THERAPY SS MO THER PX 1/> AREAS EACH 15 MIN NEUROMUSC REEDUCA Elena Apodaca PA [address] [facility] [address] [place] [address] Alvino Pacheco PT [address] [facility] [address] [place] [address] Referral ID Status Reason Start Date Expiration Date Visits Requested Visits Authorized [id number] Authorized Consult and Treat 10/01/2023 09/09/2024 1 30 [facility] Summary Purpose Family History No Family History Records Found Relationship Condition Age at Onset Recorded Date/T maya father Myocardial infarction Unknown Cerebrovascular accident (CVA) Unknown Malignant neoplasm of colon Unknown Coronary artery disease Unknown Not Specified Diabetes mellitus Unknown brother Pulmonary embolism Unknown Advance Directives No Advanced Directives Records Found Advance Directive Response Recorded Date/ Time Advance Directives No February 28 2:30pm Chief Complaint and Reason for Visit Chief Complaint m24.812 Additional Source Comments INFORMATION SOURCE (unrecogn ized section and content) DATE CREATED AUTHOR 12/09/2021 [facility] DATE CREATED AUTHOR AUTHOR'S ORGANIZ ATION 01/10/2023 [facility] [place] [facility] DATE CREATED AUTHOR AUTHOR'S ORGANIZ ATION 04/30/2023 [facility] DATE CREATED AUTHOR AUTHOR'S ORGANIZ ATION 11/18/2023 [facility] DATE CREATED AUTHOR AUTHOR'S ORGANIZ ATION 11/27/2023 [facility] EPIC Patient Care team informatio n (unrecognized section and content) Team Status: Active Member Role Status Dates Sachin Dickson MD Primary Care Provider Active Team Status: Inactive Member Role Status Dates Sachin Dickson MD Primary Care Provider Active Elena Apodaca PA-C Attending Provider Active Digital Account Executive Relationship Specialty Start Date End Date Sachin Dickson MD [address] [place] [address] PCP - General Family Medicine 02/07/23 Digital Account Executive Relationship Specialty Start Date End Date Sachin Dickson MD [address] [place] [address] PCP - General Family Medicine 02/07/23 Digital Account Executive Relationship Specialty Start Date End Date Sachin Dickson MD [address] [place] [address] PCP - General Family Medicine 02/07/23 Digital Account Executive Relationship Specialty Start Date End Date Sachin Dickson MD [address] [place] [address] PCP - General Family Medicine 02/07/23 Digital Account Executive Relationship Specialty Start Date End Date Sachin Dickson MD [address] [place] [address] PCP - General Family Medicine 02/07/23 Digital Account Executive Relationship Specialty Start Date End Date Sachin Dickson MD [address] [place] [address] PCP - General Family Medicine 02/07/23 Goals (unrecognized section and content) Goals may be documented in a n alternate section FOR RECORDS PERTAINING TO PATIENTS WHO ARE OR HAVE BEEN ENROLLED IN A CHEMICAL DEPENDENCY/SUBSTANCEABUSE PROGRAM, SOME INFORMATION MAY BE OMITTED. This clinical summary was aggregated from multiple sources. Caution should be exercised in using it in the provision of clinical care. This summary normalizes information from multiple sources, and as a consequence, information in this document may materially change the coding, format and clinical context of patient data. In addition, data may be omitted in some cases. CLINICAL DECISIONS SHOULD BE BASED ON THE PRIMARY CLINICAL RECORDS. [facility] [employer] [facility]. provides no warranty or guarantee of the accuracy or completeness of information in this document.
[2023-11-29 12:56] LABS: Estimated Average Glucose 146 mg/dL; Glycohemoglobin A1C 6.7 % (4.5-6.2)
== END 2023-11-29 12:11 | disposition home or self-care (01) ==
LOC: LAB 12:10
PROVIDERS: PCP Nurse Practitioner; Visit Provider Orthopaedic Surgery
DX: E13.319 Other specified diabetes mellitus with unspecified diabetic retinopathy without macular edema (principal)
CPT/HCPCS: 36415; 83036